=== PATIENT | female | born 1955 | race Caucasian/White ===

== ENCOUNTER → 2016-10-01 | Outpatient (CLI) | payer BC ==
[~2016-10-01] VITALS: Ht 154.9 cm; Wt 77.1 kg
[~2016-10-01] MED LIST: ADENOSINE 65 MG in GIVE UN-DILUTED 0 ML IV ONE; ADENOSINE 90 MG/30 ML INJ IV ONE; ASPI81TA27 PO; ENAL2.5T PO
== END | disposition home or self-care (01) ==
LOC: Rad HDHVI 09:24
PROVIDERS: ATTEND Internal Medicine Cardiovascular Disease
DX: I10 Essential (primary) hypertension (principal); E78.00 Pure hypercholesterolemia, unspecified; I70.0 Atherosclerosis of aorta; Z86.73 Personal history of transient ischemic attack (TIA), and cerebral infarction without residual deficits; Z82.49 Family history of ischemic heart disease and other diseases of the circulatory system
CPT/HCPCS: 71020; 78452; 93005; 96374; 96375; A9500; J0153

== ENCOUNTER → 2016-10-02 | Outpatient (CLI) | payer BC ==
[~2016-10-02] MED LIST changes: -ADENOSINE 65 MG in GIVE UN-DILUTED 0 ML IV ONE; -ADENOSINE 90 MG/30 ML INJ IV ONE
== END | disposition home or self-care (01) ==
LOC: Rad HDHVI 13:16
PROVIDERS: ATTEND Internal Medicine Cardiovascular Disease
DX: Z01.810 Encounter for preprocedural cardiovascular examination (principal); I65.22 Occlusion and stenosis of left carotid artery; I70.0 Atherosclerosis of aorta; I10 Essential (primary) hypertension; E78.5 Hyperlipidemia, unspecified
CPT/HCPCS: 93306

== ENCOUNTER → 2016-10-15 | Outpatient (CLI) | payer BC | END | disposition home or self-care (01) | LOC: Rad HDHVI 10:51 | PROVIDERS: ATTEND Internal Medicine Cardiovascular Disease | DX: Z01.818 Encounter for other preprocedural examination (principal) | CPT/HCPCS: 93880 ==

== ENCOUNTER → 2016-11-11 | Outpatient (CLI) | payer BC ==
[~2016-11-11] MED LIST changes: +GABA600T PO
[2016-11-11 09:00] VITALS: BP 126/65
[2016-11-11 09:40] VITALS: BP 133/70
[2016-11-11 12:42] LABS: Basophils # (auto) 0.1 uL; Basophils % (auto) 0.5 % (0.0-2.0); Eosinophils # (auto) 0.1 uL; Eosinophils % (auto) 1.2 % (0.0-7.0); Hematocrit 38.6 % (36.0-46.0); Hemoglobin 12.7 g/dL (12.2-16.2); Lymphocytes % (auto) 17.3 % (10.0-50.0); Mean Corpuscular Hemoglobin 29.4 pg (28.0-32.0); Mean Corpuscular Volume 89.2 fL (80.0-100.0); Mean Platelet Volume 9.9 fL (7.4-10.4); Monocytes # (auto) 0.3 uL; Monocytes % (auto) 2.9 % (0.0-12.0); Neutrophils # (auto) 8.8 uL; Neutrophils % (auto) 78.1 % (37.0-80.0); Platelet Count (auto) 337 10^3/uL (140-450); Red Cell Distribution Width 15.3 % (11.6-16.0); White Blood Cell 11.3 10^3/uL (4.4-10.8)
[2016-11-11 13:02] LABS: INR 0.93 (0.9-1.15); Partial Thromboplastin Time 24.8 sec (22.64-33.71)
[2016-11-11 13:10] LABS: BUN/Creatinine Ratio 23.7; Calcium 9.1 mg/dL (8.5-10.1); Magnesium 2.5 mg/dL (1.6-2.6); Potassium 3.8 mmol/L (3.5-5.1)
== END | disposition home or self-care (01) ==
LOC: Rad HDHVI 08:56
PROVIDERS: ATTEND Internal Medicine Cardiovascular Disease
DX: I10 Essential (primary) hypertension (principal); E83.40 Disorders of magnesium metabolism, unspecified; D64.9 Anemia, unspecified; R79.1 Abnormal coagulation profile
CPT/HCPCS: 36415; 71020; 80048; 83735; 85025; 85610; 85730; 93005; G0463

== ENCOUNTER 2016-11-13 08:23 | Inpatient (IN) | payer BC ==
[~2016-11-13] VITALS: Ht 154.9 cm; Wt 9.0 kg
[2016-11-13] MEDS ORDERED: SODIUM CHL 0.9% 50 ML ONE (08:41)
[2016-11-13] MEDS ORDERED: fentaNYL CITRATE 100 MCG/2 ML VL ONE (08:41)
[2016-11-13] MEDS ORDERED: ANGIOMAX 250 MG VIAL IV ONE (08:41)
[2016-11-13] MEDS ORDERED: MIDAZOLAM HCL 1MG/1ML-2 ML VIAL ONE (08:41)
[2016-11-13] MEDS ORDERED: TICAGRELOR 90 MG TAB ONE (09:28)
[2016-11-13] MEDS ORDERED: SODIUM CHLORIDE 0.9% 1,000 ML IV SCH (09:49)
[2016-11-13] MEDS ORDERED: MORPHINE SULF INJ 2 MG/ML SYRINGE 1ML IV PRN (10:00)
[2016-11-13] MEDS ORDERED: HYDROcodone-ACET 5/325MG TAB PO PRN (10:00)
[2016-11-13] MEDS ORDERED: ZOLPIDEM TARTRATE 5 MG TAB PO PRN (10:00)
[2016-11-13] MEDS ORDERED: LORazepam 0.5 MG TAB PO PRN (10:00)
[2016-11-13] MEDS ORDERED: NITROGLYCERIN 0.4 MG SL TAB SL PRN ×2 (10:00)
[2016-11-13] MEDS ORDERED: ACETAMINOPHEN 500 MG TAB PO PRN (10:00)
[2016-11-13] MEDS ORDERED: TICAGRELOR 90 MG TAB PO ONE (10:00)
[2016-11-13] MEDS ORDERED: ONDANSETRON HCL 4 MG/2 ML VIAL IV PRN (10:00)
[2016-11-13 10:30] VITALS: BP 150/69
[2016-11-13 11:09] VITALS: BP 150/69
[2016-11-13] MEDS: ENALAPRIL MALEATE 2.5 MG TAB PO SCH (11:57)
[2016-11-13 13:17] VITALS: BP 141/77
[2016-11-13] MEDS: GABAPENTIN 300 MG CAP PO SCH ×2 (13:55→22:12)
[2016-11-13] MEDS: ASPirin-EC 81 mg tab PO SCH (13:55)
[2016-11-13] MEDS ORDERED: OXY5T PO (15:17)
[2016-11-13 16:55] VITALS: BP 131/75
[2016-11-13] MEDS: OXYCODONE HCL 5MG TAB PO PRN ×2 (17:52→22:13)
[2016-11-13 22:00] VITALS: BP 127/67
[2016-11-13] MEDS: TICAGRELOR 90 MG TAB PO SCH (23:41)
[2016-11-14] MEDS: OXYCODONE HCL 5MG TAB PO PRN ×2 (03:07→08:09)
[2016-11-14 05:00] VITALS: BP 118/71
[2016-11-14] MEDS: GABAPENTIN 300 MG CAP PO SCH (05:36)
[2016-11-14 07:29] VITALS: BP 118/72
[2016-11-14 08:00] VITALS: BP 118/71
[2016-11-14 08:52] VITALS: BP 149/79
[2016-11-14] MEDS: ASPirin-EC 81 mg tab PO SCH (10:00)
[2016-11-14] MEDS: ENALAPRIL MALEATE 2.5 MG TAB PO SCH (10:00)
[2016-11-14] MEDS: TICAGRELOR 90 MG TAB PO SCH (10:00)
== END 2016-11-14 10:30 | disposition home or self-care (01) | DRG 247 ==
LOC: CATH 08:23 → TELE-WESTW 08:24
PROVIDERS: ADMIT Internal Medicine Cardiovascular Disease; ATTEND Internal Medicine Cardiovascular Disease
PROC: 0270346 Dilation of Coronary Artery, One Artery, Bifurcation, with Drug-eluting Intraluminal Device, Percutaneous Approach (ICD-10-PCS; principal; 2016-11-13)
PROC: 027034Z Dilation of Coronary Artery, One Artery with Drug-eluting Intraluminal Device, Percutaneous Approach (ICD-10-PCS; 2016-11-13)
PROC: 4A023N7 Measurement of Cardiac Sampling and Pressure, Left Heart, Percutaneous Approach (ICD-10-PCS; 2016-11-13)
PROC: B2111ZZ Fluoroscopy of Multiple Coronary Arteries using Low Osmolar Contrast (ICD-10-PCS; 2016-11-13)
PROC: B2151ZZ Fluoroscopy of Left Heart using Low Osmolar Contrast (ICD-10-PCS; 2016-11-13)
PROC: B41F1ZZ Fluoroscopy of Right Lower Extremity Arteries using Low Osmolar Contrast (ICD-10-PCS; 2016-11-13)
DX: I25.10 Atherosclerotic heart disease of native coronary artery without angina pectoris (principal); E11.9 Type 2 diabetes mellitus without complications; I10 Essential (primary) hypertension; E78.5 Hyperlipidemia, unspecified; M54.16 Radiculopathy, lumbar region; E66.01 Morbid (severe) obesity due to excess calories
CPT/HCPCS: 92928; 92929; 93458; 99152; C1874; J2250

== ENCOUNTER 2016-12-16 15:45 | Inpatient (IN) | payer BC ==
[~2016-12-16] VITALS: Ht 154.9 cm; Wt 78.6 kg
[~2016-12-16 15:45] MED LIST changes: +OXY5T PO
[2016-12-16 16:34] LABS: Basophils # (auto) 0 uL; Basophils % (auto) 0.4 % (0.0-2.0); Eosinophils # (auto) 0.2 uL; Eosinophils % (auto) 2.2 % (0.0-7.0); Hematocrit 35.3 % (36.0-46.0); Hemoglobin 11.9 g/dL (12.2-16.2); Lymphocytes # (auto) 1.6 uL; Lymphocytes % (auto) 15.9 % (10.0-50.0); Mean Corpuscular Hemoglobin 29.4 pg (28.0-32.0); Mean Corpuscular Hgb Conc. 33.9 g/dL (32.0-36.0); Mean Corpuscular Volume 86.7 fL (80.0-100.0); Mean Platelet Volume 9.4 fL (7.4-10.4); Monocytes # (auto) 0.8 uL; Monocytes % (auto) 7.9 % (0.0-12.0); Neutrophils # (auto) 7.2 uL; Neutrophils % (auto) 73.6 % (37.0-80.0); Platelet Count (auto) 338 10^3/uL (140-450); Red Cell Distribution Width 14.9 % (11.6-16.0); White Blood Cell 9.8 10^3/uL (4.4-10.8)
[2016-12-16 16:48] LABS: Albumin 3.4 g/dL (3.4-5.0); BUN/Creatinine Ratio 6.3; Calcium 8.6 mg/dL (8.5-10.1); Potassium 3.8 mmol/L (3.5-5.1)
[2016-12-16 16:51] LABS: Bilirubin, Total 0.9 mg/dL (0.2-1.0)
[2016-12-16 18:47] LABS: Urine Bilirubin Negative (Negative); Urine Blood Negative /uL (Negative); Urine Color Yellow (Yellow); Urine Glucose Normal (Normal); Urine Ketone Negative (Negative); Urine Nitrite Negative (Negative); Urine RBC <1 /hpf (0 - 4); Urine Squamous Epithelial Cell FEW /hpf (<5); Urine Urobilinogen Normal (Negative)
[2016-12-16] MEDS ORDERED: MORPHINE SULFATE 4 MG/ML SYRG IM ONE (19:45)
[2016-12-16] MEDS ORDERED: MORPHINE SULFATE 4 MG/ML SYRG IV ONE (20:15)
[2016-12-16] MEDS ORDERED: SODIUM CHLORIDE 0.9% 1,000 ML IV ONE (20:30)
[2016-12-16] MEDS ORDERED: ONDANSETRON HCL 4 MG/2 ML VIAL IV ONE (20:30)
[2016-12-16] MEDS ORDERED: OXY5T PO (22:47)
[2016-12-16] MEDS ORDERED: GABA-494 PO (22:47)
[2016-12-16] MEDS ORDERED: ENA10T PO (22:47)
[2016-12-16] MEDS ORDERED: TICA90TA PO (22:47)
[2016-12-16] MEDS ORDERED: MAGN400T5 PO (22:47)
[2016-12-16] MEDS ORDERED: DOCUSATE SOD 100 MG CAP PO PRN (23:15)
[2016-12-16] MEDS: SODIUM CHLORIDE 0.9% 1,000 ML IV SCH (23:32)
[2016-12-17] VITALS (7 sets, daily range): BP systolic 127–159; BP diastolic 58–88
[2016-12-17] MEDS: oxyCODONE ER 10 MG TAB PO SCH ×7 (02:30→21:36)
[2016-12-17] MEDS: SODIUM CHLORIDE 0.9% 1,000 ML IV SCH (04:40)
[2016-12-17] MEDS: GABAPENTIN 100 MG CAP PO SCH ×3 (05:21→21:36)
[2016-12-17] MEDS: ENALAPRIL MALEATE 10 MG TAB PO SCH (08:57)
[2016-12-17] MEDS: FAMOTIDINE (10MG/ML) 2ML VL IV SCH ×2 (08:58→21:35)
[2016-12-17] MEDS: MAGNESIUM OXIDE 400 MG TAB PO SCH (08:58)
[2016-12-17] MEDS: TICAGRELOR 90 MG TAB PO SCH ×2 (09:07→21:36)
[2016-12-17] MEDS ORDERED: LEVOFLOXACIN 500MG 100 ML IV ONE (09:45)
[2016-12-17] MEDS: LEVOFLOXACIN 500MG 100 ML IV SCH (10:00)
[2016-12-17] MEDS: metroNIDAZOLE 500MG/100ML 100 ML IV SCH ×2 (18:03→23:17)
[2016-12-18] MEDS: oxyCODONE ER 10 MG TAB PO SCH ×6 (02:04→21:37)
[2016-12-18] MEDS: SODIUM CHLORIDE 0.9% 1,000 ML IV SCH ×2 (02:04→16:19)
[2016-12-18 05:00] VITALS: BP 159/68
[2016-12-18] MEDS: metroNIDAZOLE 500MG/100ML 100 ML IV SCH ×3 (05:40→18:39)
[2016-12-18] MEDS: GABAPENTIN 100 MG CAP PO SCH ×3 (05:41→21:36)
[2016-12-18 08:00] VITALS: BP 115/82
[2016-12-18 09:00] VITALS: BP_SYST 115; BP_SYST 171; BP_DIAS 69; BP_DIAS 82
[2016-12-18] MEDS: FAMOTIDINE (10MG/ML) 2ML VL IV SCH ×2 (09:23→21:37)
[2016-12-18] MEDS: MAGNESIUM OXIDE 400 MG TAB PO SCH (09:23)
[2016-12-18] MEDS: LEVOFLOXACIN 500MG 100 ML IV SCH (09:23)
[2016-12-18] MEDS: ENALAPRIL MALEATE 10 MG TAB PO SCH (09:25)
[2016-12-18] MEDS ORDERED: LEVOFLOXACIN 500MG 100 ML IV SCH (10:00)
[2016-12-18] MEDS: TICAGRELOR 90 MG TAB PO SCH ×2 (12:22→21:36)
[2016-12-18] MEDS: METOCLOPRAMIDE HCL 5MG/ml INJ 2ml VIAL IV PRN (12:23)
[2016-12-18 13:00] VITALS: BP 171/69
[2016-12-18 17:00] VITALS: BP 165/67
[2016-12-18 22:59] VITALS: BP 150/71
[2016-12-19] MEDS: metroNIDAZOLE 500MG/100ML 100 ML IV SCH ×4 (00:32→18:29)
[2016-12-19] MEDS: oxyCODONE ER 10 MG TAB PO SCH ×6 (02:04→21:40)
[2016-12-19 05:08] VITALS: BP 150/73
[2016-12-19] MEDS: GABAPENTIN 100 MG CAP PO SCH ×3 (05:37→21:39)
[2016-12-19] MEDS: SODIUM CHLORIDE 0.9% 1,000 ML IV SCH ×2 (05:41→18:30)
[2016-12-19 08:00] VITALS: BP 150/80
[2016-12-19] MEDS: MAGNESIUM OXIDE 400 MG TAB PO SCH (09:21)
[2016-12-19] MEDS: FAMOTIDINE (10MG/ML) 2ML VL IV SCH ×2 (09:22→21:39)
[2016-12-19] MEDS: ENALAPRIL MALEATE 10 MG TAB PO SCH (09:23)
[2016-12-19] MEDS: LEVOFLOXACIN 500MG 100 ML IV SCH (09:23)
[2016-12-19] MEDS: METOCLOPRAMIDE HCL 5MG/ml INJ 2ml VIAL IV PRN ×2 (09:23→18:26)
[2016-12-19] MEDS: TICAGRELOR 90 MG TAB PO SCH ×2 (11:12→22:00)
[2016-12-19 13:00] VITALS: BP 184/91
[2016-12-19] MEDS ORDERED: ENALAPRIL MALEATE 10 MG TAB PO ONE (15:00)
[2016-12-19 17:00] VITALS: BP 168/86
[2016-12-19 21:30] VITALS: BP 180/91
[2016-12-19] MEDS: cloNIDine HCL 0.1 MG TAB PO PRN (22:26)
[2016-12-20] MEDS: metroNIDAZOLE 500MG/100ML 100 ML IV SCH ×5 (00:22→23:49)
[2016-12-20] MEDS: oxyCODONE ER 10 MG TAB PO SCH ×6 (02:42→21:33)
[2016-12-20 05:00] VITALS: BP 185/85
[2016-12-20] MEDS ORDERED: cloNIDine HCL 0.1 MG TAB ONE (05:11)
[2016-12-20] MEDS: GABAPENTIN 100 MG CAP PO SCH ×3 (05:43→21:27)
[2016-12-20] MEDS: cloNIDine HCL 0.1 MG TAB PO PRN (05:45)
[2016-12-20] MEDS: SODIUM CHLORIDE 0.9% 1,000 ML IV SCH ×2 (07:37→20:35)
[2016-12-20 08:49] VITALS: BP 107/72
[2016-12-20] MEDS: ENALAPRIL MALEATE 10 MG TAB PO SCH (10:00)
[2016-12-20] MEDS: TICAGRELOR 90 MG TAB PO SCH ×3 (10:00→21:27)
[2016-12-20] MEDS: LEVOFLOXACIN 500MG 100 ML IV SCH (10:06)
[2016-12-20] MEDS: MAGNESIUM OXIDE 400 MG TAB PO SCH (10:07)
[2016-12-20] MEDS: FAMOTIDINE (10MG/ML) 2ML VL IV SCH ×2 (10:07→21:27)
[2016-12-20] MEDS: METOCLOPRAMIDE HCL 5MG/ml INJ 2ml VIAL IV PRN (12:12)
[2016-12-20] MEDS ORDERED: METOCLOPRAMIDE HCL 10 MG TAB PO PRN (12:15)
[2016-12-20] MEDS ORDERED: METOCLOPRAMIDE HCL 5MG/ml INJ 2ml VIAL ONE (12:16)
[2016-12-20 12:22] VITALS: BP 153/72
[2016-12-20 15:05] LABS: Basophils # (auto) 0 uL; Basophils % (auto) 0.6 % (0.0-2.0); Eosinophils # (auto) 0.2 uL; Eosinophils % (auto) 2.9 % (0.0-7.0); Hematocrit 33.9 % (36.0-46.0); Hemoglobin 11.7 g/dL (12.2-16.2); Lymphocytes # (auto) 1.5 uL; Lymphocytes % (auto) 19.1 % (10.0-50.0); Mean Corpuscular Hemoglobin 29.6 pg (28.0-32.0); Mean Corpuscular Hgb Conc. 34.5 g/dL (32.0-36.0); Mean Platelet Volume 8.2 fL (7.4-10.4); Monocytes # (auto) 0.6 uL; Monocytes % (auto) 8.5 % (0.0-12.0); Neutrophils # (auto) 5.3 uL; Neutrophils % (auto) 68.9 % (37.0-80.0); Platelet Count (auto) 387 10^3/uL (140-450); Red Cell Distribution Width 14.4 % (11.6-16.0); White Blood Cell 7.7 10^3/uL (4.4-10.8)
[2016-12-20 15:13] LABS: BUN/Creatinine Ratio 3.2; Calcium 8.5 mg/dL (8.5-10.1); Potassium 3.6 mmol/L (3.5-5.1)
[2016-12-20 17:04] VITALS: BP 144/66
[2016-12-20] MEDS: PANCREATIC ENZYMES 4200 UNIT CAP PO SCH ×2 (18:00→18:11)
[2016-12-20 22:00] VITALS: BP 157/73
[2016-12-21] MEDS: oxyCODONE ER 10 MG TAB PO SCH ×6 (02:30→21:38)
[2016-12-21 05:00] VITALS: BP 155/94
[2016-12-21] MEDS: metroNIDAZOLE 500MG/100ML 100 ML IV SCH (05:26)
[2016-12-21] MEDS: GABAPENTIN 100 MG CAP PO SCH ×3 (05:26→21:38)
[2016-12-21] MEDS: PANCREATIC ENZYMES 4200 UNIT CAP PO SCH ×3 (08:23→17:56)
[2016-12-21 09:00] VITALS: BP 164/84
[2016-12-21] MEDS ORDERED: FUROSEMIDE 40 MG/4 ML VIAL IV ONE (10:15)
[2016-12-21] MEDS: MAGNESIUM OXIDE 400 MG TAB PO SCH (10:52)
[2016-12-21] MEDS: ENALAPRIL MALEATE 10 MG TAB PO SCH (10:53)
[2016-12-21] MEDS: FAMOTIDINE (10MG/ML) 2ML VL IV SCH ×2 (10:59→21:38)
[2016-12-21 13:00] VITALS: BP 152/92
[2016-12-21] MEDS ORDERED: CLOPIDOGREL BISULFATE 75 MG TAB PO ONE (13:00)
[2016-12-21] MEDS: PROMETHAZINE HCL 25 MG/ML 1ML IM SCH ×2 (14:49→21:37)
[2016-12-21 17:00] VITALS: BP 131/97
[2016-12-21 22:00] VITALS: BP 175/102
[2016-12-21] MEDS: cloNIDine HCL 0.1 MG TAB PO PRN (22:47)
[2016-12-22] MEDS: oxyCODONE ER 10 MG TAB PO SCH ×6 (02:00→22:01)
[2016-12-22 05:00] VITALS: BP 160/105
[2016-12-22] MEDS: PROMETHAZINE HCL 25 MG/ML 1ML IM SCH ×2 (05:42→13:51)
[2016-12-22] MEDS: GABAPENTIN 100 MG CAP PO SCH ×3 (05:43→22:01)
[2016-12-22] MEDS: PANCREATIC ENZYMES 4200 UNIT CAP PO SCH ×4 (08:00→18:03)
[2016-12-22] MEDS ORDERED: EZ-GAS II GRANULES (RADIOLOGY USE) PO ONE (08:32)
[2016-12-22] MEDS ORDERED: BARIUM SULFATE 98% 340 GM PWDR ONE (08:33)
[2016-12-22] MEDS ORDERED: EZ PAQUE SUSP 12OZ BTL ONE (08:33)
[2016-12-22 08:49] VITALS: BP 149/98
[2016-12-22] MEDS: FAMOTIDINE (10MG/ML) 2ML VL IV SCH ×2 (10:26→22:01)
[2016-12-22] MEDS: MAGNESIUM OXIDE 400 MG TAB PO SCH (10:28)
[2016-12-22] MEDS: CLOPIDOGREL BISULFATE 75 MG TAB PO SCH (10:28)
[2016-12-22] MEDS: ENALAPRIL MALEATE 10 MG TAB PO SCH (10:28)
[2016-12-22] MEDS: cloNIDine HCL 0.1 MG TAB PO PRN (12:18)
[2016-12-22 12:37] VITALS: BP 170/93
[2016-12-22 16:30] VITALS: BP 131/74
[2016-12-22 21:45] VITALS: BP 147/65
[2016-12-23] MEDS: oxyCODONE ER 10 MG TAB PO SCH ×6 (02:20→21:59)
[2016-12-23 05:36] VITALS: BP 121/69
[2016-12-23 05:46] LABS: Albumin 2.7 g/dL (3.4-5.0); Calcium 7.5 mg/dL (8.5-10.1)
[2016-12-23 05:49] LABS: BUN/Creatinine Ratio 7.6
[2016-12-23 05:51] LABS: Bilirubin, Total 0.7 mg/dL (0.2-1.0); Total Protein 5.2 g/dL (6.4-8.2)
[2016-12-23] MEDS: GABAPENTIN 100 MG CAP PO SCH ×3 (06:12→21:59)
[2016-12-23] MEDS ORDERED: GASTROGRAFIN 30 ML SOL ONE (06:46)
[2016-12-23 07:05] LABS: B-Type Natriuretic Peptide 90.35 pg/mL (0-100)
[2016-12-23 07:37] VITALS: BP 132/61
[2016-12-23 07:51] LABS: Temperature: 22.9 C (20.0-25.0)
[2016-12-23] MEDS: POTASSIUM CHL 20MEQ/100ML 100 ML IV SCH ×3 (08:43→16:39)
[2016-12-23] MEDS: PANCREATIC ENZYMES 4200 UNIT CAP PO SCH ×3 (08:43→18:24)
[2016-12-23] MEDS: SODIUM CHLORIDE 0.9% 1,000 ML IV SCH (08:44)
[2016-12-23] MEDS: CLOPIDOGREL BISULFATE 75 MG TAB PO SCH (10:37)
[2016-12-23] MEDS: MAGNESIUM OXIDE 400 MG TAB PO SCH (10:38)
[2016-12-23] MEDS: ENALAPRIL MALEATE 10 MG TAB PO SCH (10:38)
[2016-12-23] MEDS: FAMOTIDINE (10MG/ML) 2ML VL IV SCH ×2 (10:39→21:59)
[2016-12-23 12:23] VITALS: BP 140/60
[2016-12-23 16:28] VITALS: BP 128/77
[2016-12-23] MEDS: metroNIDAZOLE 500 MG TAB PO SCH (21:59)
[2016-12-23 22:00] VITALS: BP 148/71
[2016-12-24] MEDS: oxyCODONE ER 10 MG TAB PO SCH ×6 (02:01→22:17)
[2016-12-24] MEDS: SODIUM CHLORIDE 0.9% 1,000 ML IV SCH (05:00)
[2016-12-24] MEDS: metroNIDAZOLE 500 MG TAB PO SCH ×4 (05:37→22:16)
[2016-12-24] MEDS: GABAPENTIN 100 MG CAP PO SCH ×3 (05:37→22:16)
[2016-12-24 05:45] VITALS: BP 138/69
[2016-12-24 08:00] VITALS: BP 131/82
[2016-12-24] MEDS: PANCREATIC ENZYMES 4200 UNIT CAP PO SCH ×3 (08:56→18:40)
[2016-12-24] MEDS: FAMOTIDINE (10MG/ML) 2ML VL IV SCH ×2 (10:11→22:16)
[2016-12-24] MEDS: MAGNESIUM OXIDE 400 MG TAB PO SCH (10:12)
[2016-12-24] MEDS: ENALAPRIL MALEATE 10 MG TAB PO SCH (10:12)
[2016-12-24] MEDS: CLOPIDOGREL BISULFATE 75 MG TAB PO SCH (10:12)
[2016-12-24 12:00] VITALS: BP 154/76
[2016-12-24 17:00] VITALS: BP 156/70
[2016-12-24 22:00] VITALS: BP 134/61
[2016-12-25] MEDS: oxyCODONE ER 10 MG TAB PO SCH ×4 (01:48→13:56)
[2016-12-25 05:00] VITALS: BP 146/87
[2016-12-25] MEDS: metroNIDAZOLE 500 MG TAB PO SCH ×2 (05:56→12:40)
[2016-12-25] MEDS: GABAPENTIN 100 MG CAP PO SCH ×2 (05:56→13:56)
[2016-12-25 08:24] VITALS: BP 154/78
[2016-12-25] MEDS: PANCREATIC ENZYMES 4200 UNIT CAP PO SCH ×2 (09:03→12:40)
[2016-12-25] MEDS: MAGNESIUM OXIDE 400 MG TAB PO SCH (09:03)
[2016-12-25] MEDS: CLOPIDOGREL BISULFATE 75 MG TAB PO SCH (09:03)
[2016-12-25] MEDS: FAMOTIDINE (10MG/ML) 2ML VL IV SCH (09:03)
[2016-12-25] MEDS: ENALAPRIL MALEATE 10 MG TAB PO SCH (09:04)
[2016-12-25 12:01] VITALS: BP 105/63
[2016-12-25] MEDS ORDERED: HYDROmorphone HCL 2 MG/ML VL IM ONE (13:30)
[2016-12-25] MEDS ORDERED: methylPREDNISolone SOD SUCC 40 MG/ML VL IV ONE (13:30)
[2016-12-25 17:13] VITALS: BP 157/69
== END 2016-12-25 17:55 | disposition home or self-care (01) | DRG 372 ==
LOC: ER 15:50 → OVERFLOW 15:51 → EAST 12-17 04:30
PROVIDERS: ADMIT Internal Medicine Cardiovascular Disease; ATTEND Internal Medicine Cardiovascular Disease
DX: A04.7 Enterocolitis due to Clostridium difficile (principal); E87.1 Hypo-osmolality and hyponatremia; I10 Essential (primary) hypertension; F41.9 Anxiety disorder, unspecified; M19.90 Unspecified osteoarthritis, unspecified site; M54.9 Dorsalgia, unspecified; D64.9 Anemia, unspecified; G89.4 Chronic pain syndrome; E86.0 Dehydration; I25.10 Atherosclerotic heart disease of native coronary artery without angina pectoris; M79.7 Fibromyalgia; Z86.73 Personal history of transient ischemic attack (TIA), and cerebral infarction without residual deficits; Z88.8 Allergy status to other drugs, medicaments and biological substances; Z79.899 Other long term (current) drug therapy; Z79.82 Long term (current) use of aspirin; Z95.5 Presence of coronary angioplasty implant and graft
CPT/HCPCS: 36415; 71010; 74000; 74176; 74245; 80048; 80053; 81001; 82150; 83690; 83880; 84132; 85025; 87493; 93005; 96361; 96374; 96375; 97001; 97116; 97530; J1956; J2405; J3480; J3490

== ENCOUNTER → 2017-01-14 | Outpatient (CLI) | payer BC ==
[~2017-01-14] MED LIST changes: +ENA10T PO; +GABA-494 PO; +MAGN400T5 PO; +TICA90TA PO
== END | disposition home or self-care (01) ==
LOC: Rad HDHVI 10:24
PROVIDERS: ATTEND Internal Medicine Cardiovascular Disease
DX: I10 Essential (primary) hypertension (principal); E11.9 Type 2 diabetes mellitus without complications
CPT/HCPCS: 93306

== ENCOUNTER → 2017-10-06 | Outpatient (CLI) | payer BC ==
[~2017-10-06] MED LIST changes: +ASP81EC PO; +ENAL20TA70 PO; +GABA-339 PO; -GABA-494 PO; +GABA100C9 PO; +OXY10CRT PO; +PRED1PAK9 PO
== END | disposition home or self-care (01) ==
LOC: Rad HDHVI 15:28
PROVIDERS: ATTEND Internal Medicine Cardiovascular Disease
DX: I63.9 Cerebral infarction, unspecified (principal)
CPT/HCPCS: 93880

== ENCOUNTER → 2017-10-15 | Outpatient (CLI) | payer BC ==
[~2017-10-15] MED LIST changes: +ADENOSINE 59 MG in GIVE UN-DILUTED 0 ML IV ONE; +ADENOSINE 90 MG/30 ML INJ IV ONE
== END | disposition home or self-care (01) ==
LOC: Rad HDHVI 08:27
PROVIDERS: ATTEND Internal Medicine Cardiovascular Disease
DX: I25.10 Atherosclerotic heart disease of native coronary artery without angina pectoris (principal); I63.9 Cerebral infarction, unspecified; G89.29 Other chronic pain
CPT/HCPCS: 78452; 93005; 93306; 96374; 96375; A9500; J0153

== ENCOUNTER → 2017-11-16 | Outpatient (CLI) | payer BC ==
[~2017-11-16] MED LIST changes: -ADENOSINE 59 MG in GIVE UN-DILUTED 0 ML IV ONE; -ADENOSINE 90 MG/30 ML INJ IV ONE
[2017-11-16 09:10] VITALS: BP 127/67
[2017-11-16 09:30] VITALS: BP 115/65
[2017-11-16 12:10] LABS: Basophils # (auto) 0.1 uL; Basophils % (auto) 0.4 % (0.0-2.0); Eosinophils # (auto) 0 uL; Eosinophils % (auto) 0.2 % (0.0-7.0); Hematocrit 40.6 % (36.0-46.0); Hemoglobin 13.5 g/dL (12.2-16.2); Lymphocytes # (auto) 1.3 uL; Mean Corpuscular Hemoglobin 29.9 pg (28.0-32.0); Mean Corpuscular Hgb Conc. 33.3 g/dL (32.0-36.0); Mean Corpuscular Volume 89.9 fL (80.0-100.0); Monocytes # (auto) 0.4 uL; Monocytes % (auto) 2.8 % (0.0-12.0); Neutrophils % (auto) 87.6 % (37.0-80.0); Platelet Count (auto) 269 10^3/uL (140-450); Red Blood Cells 4.51 10^6/uL (4.0-5.20); Red Cell Distribution Width 14.1 % (11.8-14.3); White Blood Cell 14.8 10^3/uL (4.4-10.8)
[2017-11-16 12:21] LABS: INR 0.91 (0.9-1.15); Prothrombin Time 9.9 sec (9.37-12.3)
[2017-11-16 12:24] LABS: BUN/Creatinine Ratio 17.7; Calcium 8.3 mg/dL (8.5-10.1)
== END | disposition home or self-care (01) ==
LOC: Rad HDHVI 08:53
PROVIDERS: ATTEND Internal Medicine Cardiovascular Disease
DX: Z01.818 Encounter for other preprocedural examination (principal); I70.0 Atherosclerosis of aorta; I10 Essential (primary) hypertension; E11.9 Type 2 diabetes mellitus without complications; E78.00 Pure hypercholesterolemia, unspecified; E78.5 Hyperlipidemia, unspecified; Z79.899 Other long term (current) drug therapy; Z79.82 Long term (current) use of aspirin
CPT/HCPCS: 36415; 71046; 80048; 85025; 85610; 85730; 93005; G0463

== ENCOUNTER 2017-11-19 07:09 | Inpatient (IN) | payer BC ==
[~2017-11-19] VITALS: Ht 154.9 cm; Wt 76.2 kg
[~2017-11-19 07:09] MED LIST changes: -ASPI81TA27 PO; -ENA10T PO; -ENAL2.5T PO; -GABA100C9 PO; -GABA600T PO; -OXY5T PO; -TICA90TA PO
[2017-11-19] MEDS ORDERED: IOHEXOL 350 MG/ML 100ML IJ ONE (08:42)
[2017-11-19] MEDS ORDERED: LIDOCAINE HCL 2 %PF INJ 10ML AMP IJ ONE (08:43)
[2017-11-19] MEDS ORDERED: ANGIOMAX 250 MG VIAL IV ONE (08:46)
[2017-11-19] MEDS ORDERED: SODIUM CHL 0.9% 50 ML ONE (08:47)
[2017-11-19] MEDS ORDERED: MIDAZOLAM HCL 1MG/1ML-2 ML VIAL ONE (08:47)
[2017-11-19] MEDS ORDERED: fentaNYL CITRATE 100 MCG/2 ML VL ONE (08:47)
[2017-11-19] MEDS ORDERED: CLOPIDOGREL 300 MG TAB ONE (09:21)
[2017-11-19] MEDS ORDERED: OXYBUTYNIN CHL 5 MG TAB PO PRN (10:00)
[2017-11-19] MEDS: ASPirin-EC 81 mg tab PO SCH (10:00)
[2017-11-19] MEDS ORDERED: SODIUM CHLORIDE 0.9% 1,000 ML IV SCH (10:04)
[2017-11-19] MEDS ORDERED: MORPHINE SULFATE 8mg/ml INJ SDV IV PRN (10:15)
[2017-11-19] MEDS ORDERED: NITROGLYCERIN 0.4 MG SL TAB SL PRN ×2 (10:15)
[2017-11-19] MEDS ORDERED: ACETAMINOPHEN 500 MG TAB PO PRN (10:15)
[2017-11-19] MEDS ORDERED: MILK OF MAGNESIA 30ML SUSP PO ONE (10:15)
[2017-11-19] MEDS ORDERED: ONDANSETRON HCL 4 MG/2 ML VIAL IV PRN (10:15)
[2017-11-19] MEDS ORDERED: LORazepam 0.5 MG TAB PO PRN (10:15)
[2017-11-19] MEDS ORDERED: ZOLPIDEM TARTRATE 5 MG TAB PO PRN (10:15)
[2017-11-19] MEDS: ENALAPRIL MALEATE 10 MG TAB PO SCH (10:23)
[2017-11-19] MEDS: predniSONE 5 MG TAB PO SCH (10:29)
[2017-11-19 12:30] VITALS: BP 132/74
[2017-11-19 13:21] VITALS: BP 132/74
[2017-11-19] MEDS: GABAPENTIN 300 MG CAP PO SCH ×3 (14:03→21:57)
[2017-11-19] MEDS: oxyCODONE ER 10 MG TAB PO SCH ×3 (14:06→21:57)
[2017-11-19] MEDS: MORPHINE SULFATE 8mg/ml INJ SDV IV PRN (15:36)
[2017-11-19 16:42] VITALS: BP 107/68
[2017-11-19 22:00] VITALS: BP 95/60
[2017-11-20] MEDS: MORPHINE SULFATE 8mg/ml INJ SDV IV PRN (00:54)
[2017-11-20] MEDS: oxyCODONE ER 10 MG TAB PO SCH ×3 (01:42→09:47)
[2017-11-20] MEDS: GABAPENTIN 300 MG CAP PO SCH ×3 (01:42→09:47)
[2017-11-20 05:00] VITALS: BP 100/65
[2017-11-20 09:10] VITALS: BP 111/65
[2017-11-20] MEDS: predniSONE 5 MG TAB PO SCH (09:47)
[2017-11-20] MEDS: ASPirin-EC 81 mg tab PO SCH (09:47)
[2017-11-20] MEDS: ENALAPRIL MALEATE 10 MG TAB PO SCH (09:48)
[2017-11-20] MEDS ORDERED: CLOPIDOGREL BISULFATE 75 MG TAB PO SCH (10:00)
[2017-11-20] MEDS ORDERED: MAGNESIUM OXIDE 400 MG TAB PO SCH (10:00)
== END 2017-11-20 10:05 | disposition home or self-care (01) | DRG 247 ==
LOC: CATH 07:09 → TELE-WESTW 07:10
PROVIDERS: ADMIT Internal Medicine Cardiovascular Disease; ATTEND Internal Medicine Cardiovascular Disease
PROC: 027034Z Dilation of Coronary Artery, One Artery with Drug-eluting Intraluminal Device, Percutaneous Approach (ICD-10-PCS; principal; 2017-11-19)
PROC: 4A023N7 Measurement of Cardiac Sampling and Pressure, Left Heart, Percutaneous Approach (ICD-10-PCS; 2017-11-19)
PROC: B2111ZZ Fluoroscopy of Multiple Coronary Arteries using Low Osmolar Contrast (ICD-10-PCS; 2017-11-19)
PROC: B2151ZZ Fluoroscopy of Left Heart using Low Osmolar Contrast (ICD-10-PCS; 2017-11-19)
DX: I25.119 Atherosclerotic heart disease of native coronary artery with unspecified angina pectoris (principal); E78.5 Hyperlipidemia, unspecified; I10 Essential (primary) hypertension; M06.9 Rheumatoid arthritis, unspecified; Z79.82 Long term (current) use of aspirin; Z86.73 Personal history of transient ischemic attack (TIA), and cerebral infarction without residual deficits; Z95.5 Presence of coronary angioplasty implant and graft
CPT/HCPCS: 92928; 93458; J2250; J2270

== ENCOUNTER 2018-01-05 10:58 | Observation (INO) | payer BC ==
[~2018-01-05] VITALS: Ht 154.9 cm; Wt 72.6 kg
[2018-01-05 12:09] LABS: Basophils # (auto) 0.1 uL; Basophils % (auto) 0.6 % (0.0-2.0); Eosinophils # (auto) 0 uL; Eosinophils % (auto) 0.1 % (0.0-7.0); Hematocrit 43.8 % (36.0-46.0); Hemoglobin 14.8 g/dL (12.2-16.2); Mean Corpuscular Hemoglobin 30.1 pg (28.0-32.0); Mean Corpuscular Hgb Conc. 33.8 g/dL (32.0-36.0); Mean Corpuscular Volume 89.1 fL (80.0-100.0); Monocytes # (auto) 0.6 uL; Monocytes % (auto) 5.3 % (0.0-12.0); Nucleated Red Blood Cells % 0.1 %; Platelet Count (auto) 297 10^3/uL (140-450); Red Blood Cells 4.92 10^6/uL (4.0-5.20); Red Cell Distribution Width 14.3 % (11.8-14.3); White Blood Cell 11.7 10^3/uL (4.4-10.8)
[2018-01-05 12:35] LABS: Alanine Aminotransferase 39 U/L (13-56); Albumin 3.7 g/dL (3.4-5.0); Alkaline Phosphatase 57 U/L (45-117); Anion Gap 12 (5-15); Aspartate Aminotransferase 12 U/L (15-37); BUN/Creatinine Ratio 12.1; Bilirubin, Total 0.6 mg/dL (0.2-1.0); Blood Urea Nitrogen 11 mg/dL (7-18); Calcium 8.8 mg/dL (8.5-10.1); Carbon Dioxide 23 mmol/L (21-32); Chloride 100 mmol/L (98-107); GFR African American 81 mL/min; GFR Non-African American 67 mL/min; Glucose 117 mg/dL (74-106); Magnesium 2.2 mg/dL (1.6-2.6); Sodium 135 mmol/L (136-145); Total Protein 7.1 g/dL (6.4-8.2)
[2018-01-05] MEDS ORDERED: ONDANSETRON ODT 4 MG TAB PO ONE (13:00)
[2018-01-05 13:35] LABS: INR 0.91 (0.9-1.15); Prothrombin Time 9.8 sec (9.27-12.13)
[2018-01-05 22:53] LABS: Urine Amorphous Crystal FEW /hpf (None Seen); Urine Bacteria FEW /hpf (None Seen); Urine Blood Negative /uL (Negative); Urine Mucus FEW (None Seen); Urine Specific Gravity 1.014 (1.001-1.035); Urine WBC 1 /hpf (0 - 5)
[2018-01-05] MEDS ORDERED: HYDROcodone-ACET 10/325MG TAB PO ONE (23:15)
[2018-01-05] MEDS ORDERED: LORazepam 2MG/ML-1ML VIAL IV ONE (23:15)
[2018-01-06 00:21] VITALS: BP 110/58
== END 2018-01-06 01:50 | disposition home or self-care (01) | DRG 303 ==
LOC: ER 11:12 → OVERFLOW 11:13 → ER 01-06 01:50
PROVIDERS: ADMIT Family Medicine; ATTEND Family Medicine
DX: I25.110 Atherosclerotic heart disease of native coronary artery with unstable angina pectoris (principal); F41.9 Anxiety disorder, unspecified; I10 Essential (primary) hypertension; M19.90 Unspecified osteoarthritis, unspecified site; Z82.49 Family history of ischemic heart disease and other diseases of the circulatory system; Z83.3 Family history of diabetes mellitus; Z95.5 Presence of coronary angioplasty implant and graft; Z79.899 Other long term (current) drug therapy
CPT/HCPCS: 36415; 71046; 80053; 81001; 83735; 83880; 84443; 84484; 85025; 85610; 85730; 93005; 96374; 99285; G0378; J2060; J7030; Q0162

== ENCOUNTER → 2018-01-20 | Outpatient (CLI) | payer MEDICARE, BC | END | disposition home or self-care (01) | LOC: Rad HDHVI 14:03 | PROVIDERS: ATTEND Internal Medicine Cardiovascular Disease | DX: I08.8 Other rheumatic multiple valve diseases (principal); I10 Essential (primary) hypertension; I20.9 Angina pectoris, unspecified | CPT/HCPCS: 93306 ==

== ENCOUNTER → 2019-10-11 | Outpatient (CLI) | payer BC, MEDICARE ==
[~2019-10-11] VITALS: Ht 154.9 cm; Wt 61.2 kg
[~2019-10-11] MED LIST changes: +ADENOSINE 51 MG in GIVE UN-DILUTED 0 ML IV ONE; +ADENOSINE 90 MG/30 ML INJ IV ONE; +ENAL20TA PO; -ENAL20TA70 PO; -MAGN400T5 PO; +PERCOT PO
== END | disposition home or self-care (01) ==
LOC: Rad HDHVI 09:34
PROVIDERS: ATTEND Internal Medicine Cardiovascular Disease
DX: I25.10 Atherosclerotic heart disease of native coronary artery without angina pectoris (principal); J44.9 Chronic obstructive pulmonary disease, unspecified; I10 Essential (primary) hypertension; E78.00 Pure hypercholesterolemia, unspecified; M54.5 Low back pain; M25.569 Pain in unspecified knee; Z82.49 Family history of ischemic heart disease and other diseases of the circulatory system
CPT/HCPCS: 78452; 93005; 93306; 96374; 96375; A9500; J0153

== ENCOUNTER → 2019-10-18 | Outpatient (CLI) | payer BC, MEDICARE ==
[~2019-10-18] MED LIST changes: -ADENOSINE 51 MG in GIVE UN-DILUTED 0 ML IV ONE; -ADENOSINE 90 MG/30 ML INJ IV ONE; +ASCO100076 PO; +AZIL40TA3 PO; +BIOT10004 PO; +CHOL100067 PO; +GABA300C10 PO; +LORA0.5T12 PO; +MAGN400C2 PO; +OXYC30TA77 PO; +OXYC325T14 PO; +PRED-158 PO
== END | disposition home or self-care (01) ==
LOC: Rad HDHVI 14:12
PROVIDERS: ATTEND Internal Medicine Cardiovascular Disease
DX: I63.9 Cerebral infarction, unspecified (principal); I10 Essential (primary) hypertension; I65.22 Occlusion and stenosis of left carotid artery
CPT/HCPCS: 93880

== ENCOUNTER 2019-10-26 23:21 | Inpatient (IN) | payer BC, MEDICARE ==
[~2019-10-26] VITALS: Ht 154.9 cm; Wt 60.2 kg
[~2019-10-26 23:21] MED LIST changes: -ASCO100076 PO; -AZIL40TA3 PO; -BIOT10004 PO; -CHOL100067 PO; -GABA300C10 PO; -LORA0.5T12 PO; -MAGN400C2 PO; -OXYC30TA77 PO; -OXYC325T14 PO; -PRED-158 PO
[2019-10-27 00:26] LABS: Basophils # (auto) 0.1 10 ^3/uL (0-0.2); Basophils % (auto) 0.7 % (0.0-2.0); Eosinophils # (auto) 0 10 ^3/uL (0-0.8); Eosinophils % (auto) 0.1 % (0.0-7.0); Hematocrit 35.3 % (36.0-46.0); Hemoglobin 12.5 g/dL (12.2-16.2); Lymphocytes # (auto) 2.5 10 ^3/uL (0.4-5.4); Mean Corpuscular Hgb Conc. 35.3 g/dL (32.0-36.0); Mean Corpuscular Volume 93.3 fL (80.0-100.0); Monocytes % (auto) 6.4 % (0.0-12.0); Neutrophils # (auto) 11.9 10 ^3/uL (1.6-8.6); Neutrophils % (auto) 76.8 % (37.0-80.0); Platelet Count (auto) 308 10^3/uL (140-450); Red Blood Cells 3.78 10^6/uL (4.0-5.20); Red Cell Distribution Width 14.6 % (11.8-14.3); White Blood Cell 15.5 10^3/uL (4.4-10.8)
[2019-10-27 00:34] LABS: Albumin 3.2 g/dL (3.4-5.0); BUN/Creatinine Ratio 30.5; Calcium 8.8 mg/dL (8.5-10.1); Magnesium 1.9 mg/dL (1.6-2.6); Potassium 4.3 mmol/L (3.5-5.1)
[2019-10-27 00:39] LABS: Bilirubin, Total 0.6 mg/dL (0.2-1.0); Total Protein 6.7 g/dL (6.4-8.2)
[2019-10-27 00:51] LABS: Urine Bacteria MANY /hpf (None Seen); Urine Blood Negative /uL (Negative); Urine Hyaline Cast FEW /lpf (0 - 2); Urine WBC 14 /hpf (0 - 5)
[2019-10-27 01:02] LABS: Alcohol, Urine < 3.0 mg/dL (0-5); Amphetamine Screen, Urine NEGATIVE (NEGATIVE); Barbiturate Scree,Urine NEGATIVE (NEGATIVE); Benzodiazephine Screen, Urine NEGATIVE (NEGATIVE); Cannabinoid Screen, Urine NEGATIVE (NEGATIVE); Cocaine Screen, Urine NEGATIVE (NEGATIVE); Opiate Scree,Urine NEGATIVE (NEGATIVE); Phencyclidine Screen, Urine NEGATIVE (NEGATIVE)
[2019-10-27] MEDS ORDERED: SODIUM CHLORIDE 0.9% 1,000 ML IV ONE (02:00)
[2019-10-27] MEDS ORDERED: cefTRIAXone 1GM/50ML D5W 50 ML IV ONE (02:00)
[2019-10-27] MEDS ORDERED: MEPERIDINE HCL (25 MG/ML) 1ML VIAL IV ONE ×2 (02:15→06:30)
[2019-10-27] MEDS ORDERED: PHENAZOPYRIDINE HCL 100 MG TAB PO ONE (05:30)
[2019-10-27] MEDS ORDERED: TEMAZEPAM 15 MG CAP PO PRN (06:45)
[2019-10-27] MEDS ORDERED: SODIUM CHLORIDE 0.9% 1,000 ML IV SCH (06:45)
[2019-10-27] MEDS ORDERED: ONDANSETRON HCL 4 MG/2 ML VIAL IV PRN (06:45)
[2019-10-27] MEDS ORDERED: ACETAMINOPHEN 325 MG TAB PO PRN (06:45)
[2019-10-27] MEDS ORDERED: NITROGLYCERIN 0.4 MG SL TAB SL PRN (07:15)
[2019-10-27] MEDS ORDERED: MORPHINE SULF INJ 2 MG/ML SYRINGE 1ML IV PRN (07:15)
[2019-10-27] MEDS ORDERED: cefTRIAXone 1GM/50ML D5W 50 ML IV SCH (09:00)
[2019-10-27] MEDS: PANTOPRAZOLE 40 MG TAB PO SCH (10:14)
--- NOTE | 2019-10-27 10:32 | NUR ---
Telemetry admit from ER AYDEN LOVE admitted to Telemetry unit after SBAR received. Patient oriented to KORI VELASCO, primary RN, unit, room, bed, and unit policies regarding patient care and visiting hours. Patient now on continuous telemetry monitoring, tele box # 87 and telemetry reading on arrival to unit is SINUS RHYTHM. Patient placed on bedside oxygen at 2lpm via nasal cannula, weighed by bedscale and encouraged to call if they need something. All questions and concerns addressed, patient verbalized understanding.
--- NOTE | 2019-10-27 10:50 | NUR ---
Dr Luis at bedside.
[2019-10-27 10:55] VITALS: BP 98/65
[2019-10-27 11:06] LABS: Potassium 4.6 mmol/L (3.5-5.1)
[2019-10-27 11:10] LABS: BUN/Creatinine Ratio 31.9
--- NOTE | 2019-10-27 12:00 | NUR ---
DR Drake at bedside. Received new verbal order, will continue care.
[2019-10-27] MEDS: OXYCODONE W/ ACETAMINOPHEN 5/325MG TABLET PO PRN ×2 (12:55→19:34)
--- NOTE | 2019-10-27 12:55 | NUR ---
PATIENT IS COMPLAINING OF LOWER BACK PAIN, NOTED GRIMACING AND VERY UNCOMFORTABLE, GAVE PERCOCET PRN ORDERED BY MD.
[2019-10-27 13:05] LABS: Creatinine, Urine 15 mg/dL (30.0-125.0); Sodium Urine 62 mmol/L (40-220)
--- NOTE | 2019-10-27 13:55 | NUR ---
PATIENT SAID THAT THE PAIN IS STILL MAYA SAME, POSITIONED COMFORTABLY.
[2019-10-27 14:19] VITALS: BP 98/65
[2019-10-27] MEDS: PIPERACILLIN-TAZO 4.5GM 100 ML IV SCH ×2 (14:27→21:40)
[2019-10-27 16:25] VITALS: BP 133/70
[2019-10-27] MEDS ORDERED: GABA300C10 PO (18:17)
[2019-10-27] MEDS ORDERED: OXYC30TA77 PO (18:17)
[2019-10-27] MEDS ORDERED: OXYC325T14 PO (18:17)
[2019-10-27] MEDS ORDERED: MAGN400C2 PO (18:17)
[2019-10-27] MEDS ORDERED: BIOT10004 PO (18:17)
[2019-10-27] MEDS ORDERED: ASCO100076 PO (18:17)
[2019-10-27] MEDS ORDERED: PRED-158 PO (18:17)
[2019-10-27] MEDS ORDERED: AZIL40TA3 PO (18:17)
[2019-10-27] MEDS ORDERED: CHOL100067 PO (18:17)
[2019-10-27] MEDS ORDERED: LORA0.5T12 PO (18:17)
--- NOTE | 2019-10-27 19:30 | NUR ---
Opening Shift Note Assumed care of patient, awake and alert oriented x4. No S/S of distress/SOB noted. Instructed on POC and to call for assist PRN. Bed is in lowest locked position with bed rails up x2 and call light is within reach of the patient.
--- NOTE | 2019-10-27 19:34 | NUR ---
PATIENT COMPLAINING OF LOWER BACK PAIN, GAVE PERCOCET PO PRN ORDERED BY MD. ENDORSED TO NIGHT NURSE.
--- NOTE | 2019-10-27 19:43 | NUR ---
CONTACTED DR BOWERS: PATIENT WANTS TO TAKE HER GABAPENTIN ACCORDING TO MED REC. CONTACTED DR BOWERS IN REGARDS TO PATIENTS GABAPENTIN. WAITING FOR CALL BACK.
--- NOTE | 2019-10-27 21:55 | NUR ---
Contacted Dr Drake regarding pain: Patient has back pain that is 9/10 not relieved with prn Percocet and is requesting something stronger for pain. Left message with DR. Drake at this time regarding patients unrelieved back pain. Provided patient with heat packs to assist with patients back pain. Waiting for call back.
--- NOTE | 2019-10-27 21:57 | NUR ---
ROBINSON CONTACTED BACK: APPROVED FOR PATIENT TO HAVE GABAPENTIN ACCORDING TO MED REC. TO PLACE ORDERS.
[2019-10-27] MEDS: GABAPENTIN 300 MG CAP PO SCH (23:15)
--- NOTE | 2019-10-27 23:39 | NUR ---
ROBINSON CONTACTED BACK: Dr Drake made aware of patients unrelieved back pain. New orders received for pain medication. To place orders. Addendum: 10/28/19 at 0025 by Namrata Agudelo RN RN ORDERED Toradol 30mg q6hour prn. Addendum: 10/28/19 at 0623 by Namrata Agudelo RN RN ORDERED Toradol 30mg q6hour prn IV
[2019-10-28 00:28] VITALS: BP 91/59
[2019-10-28] MEDS: KETOROLAC TROMETH 15 mg/ml 1ML VL IV PRN ×2 (03:34→10:24)
[2019-10-28 05:22] VITALS: BP 98/53
[2019-10-28] MEDS: PIPERACILLIN-TAZO 4.5GM 100 ML IV SCH ×3 (05:37→21:34)
[2019-10-28] MEDS: GABAPENTIN 300 MG CAP PO SCH ×4 (05:37→23:31)
[2019-10-28] MEDS: OXYCODONE W/ ACETAMINOPHEN 5/325MG TABLET PO PRN ×3 (05:38→20:44)
[2019-10-28 06:10] LABS: Basophils # (auto) 0.1 10 ^3/uL (0-0.2); Basophils % (auto) 0.6 % (0.0-2.0); Eosinophils # (auto) 0.1 10 ^3/uL (0-0.8); Eosinophils % (auto) 0.5 % (0.0-7.0); Hematocrit 35.3 % (36.0-46.0); Hemoglobin 12.3 g/dL (12.2-16.2); Lymphocytes # (auto) 2.7 10 ^3/uL (0.4-5.4); Lymphocytes % (auto) 24.7 % (10.0-50.0); Mean Corpuscular Hemoglobin 32.9 pg (28.0-32.0); Mean Corpuscular Hgb Conc. 34.7 g/dL (32.0-36.0); Mean Corpuscular Volume 94.8 fL (80.0-100.0); Monocytes # (auto) 0.9 10 ^3/uL (0-1.3); Monocytes % (auto) 8.1 % (0.0-12.0); Neutrophils # (auto) 7.3 10 ^3/uL (1.6-8.6); Neutrophils % (auto) 66.1 % (37.0-80.0); Platelet Count (auto) 284 10^3/uL (140-450); Red Blood Cells 3.73 10^6/uL (4.0-5.20); Red Cell Distribution Width 14.8 % (11.8-14.3); White Blood Cell 11.1 10^3/uL (4.4-10.8)
[2019-10-28 06:21] LABS: BUN/Creatinine Ratio 15.6; Calcium 8.5 mg/dL (8.5-10.1); Potassium 3.8 mmol/L (3.5-5.1)
--- NOTE | 2019-10-28 07:15 | NUR ---
Morning note Patient resting in bed with even and unlabored respirations; eyes closed, no distress noted. fall precautions in place with call light within reach and bed alarm on for safety.
[2019-10-28] MEDS: PANTOPRAZOLE 40 MG TAB PO SCH (08:26)
[2019-10-28 08:37] VITALS: BP 100/52
--- NOTE | 2019-10-28 11:57 | NUR ---
RE: Pain management patient reports pain is 9/10 located in BUE, BLE and her back. Patient states "I'm jerking and can't control it." Patient reports current PRN pain medication is not adequately managing her pain. This RN notified Dr. Drake. Message left for .
[2019-10-28 13:00] VITALS: BP 90/43
--- NOTE | 2019-10-28 13:32 | NUR ---
RE: medication not available - called pharmacy Called pharmacy to request scheduled medication. Medication to be delivered to unit per pharmacy staff member.
[2019-10-28] MEDS ORDERED: SODIUM CHLORIDE 0.9% 1,000 ML IV ONE (14:45)
--- NOTE | 2019-10-28 14:45 | NUR ---
RE: IVF ordered IVF to be administered after administration of scheduled IV antibiotic is completed.
[2019-10-28] MEDS: HYDROmorphone HCL 2 MG/ML VL IV PRN ×2 (15:20→19:42)
--- NOTE | 2019-10-28 15:50 | NUR ---
RE: Pain Patient reports pain has improved after administration of PRN pain medication. Patient reports pain is tolerable and that she is comfortable. Respirations even and unlabored on room air, no distress noted.
--- NOTE | 2019-10-28 16:00 | NUR ---
was at bedside - Dr. Drake This RN was at bedside.
--- NOTE | 2019-10-28 16:13 | NUR ---
IV removed/IV started Patient notified staff that IV had been removed "while moving in bed". IV site assessed. Dressing applied. No trauma to site. IV catheter assessed. IV catheter intact. 20G IV started to the LFA with clean technique. IV secured. IV education provided. Patient verbalized understanding. Bed returned to lowest locked position with call light within reach. Bed alarm on for safety.
[2019-10-28 16:48] VITALS: BP 128/75
--- NOTE | 2019-10-28 18:32 | NUR ---
RE: pain Patient reports pain in the BUE and BLE. Patient requesting pain medication. Informed patient that PRN medication cannot be administered due to MD order of frequency. Patient verbalized understanding. Administered scheduled PO medication. Patient stated "It's fine. I'm okay. I'll wait." Patient resting in bed with even and unlabored respirations on room air, no distress noted. No facial grimacing noted. Call light within reach.
--- NOTE | 2019-10-28 18:46 | NUR ---
Closing note Patient resting in bed, respirations even and unlabored on room air, no distress noted. Fall precautions in place with call light within reach, bed alarm on for safety.
--- NOTE | 2019-10-28 19:15 | NUR ---
Care endorsed to LITA Ott.
[2019-10-28 22:05] VITALS: BP 100/65
--- NOTE | 2019-10-29 00:30 | NUR ---
Patient Anxious: Patient was anxious screaming for help. Went to assist patient who stated "Im hurting, Im hurting everywhere!" Asked patient where she was hurting and patient stated "My arms, my legs and my back!" Patient rated pain as a 10/10. To medicate with PRN pain medication. Readjusted patient back into bed, provided patient with heat packs for back.
[2019-10-29] MEDS: HYDROmorphone HCL 2 MG/ML VL IV PRN ×3 (00:34→18:15)
--- NOTE | 2019-10-29 01:12 | NUR ---
Left Message with Dr. Drake: Patient having increased anxiety stating "I have pain everywhere. I cant handle this pain! I need my Ativan! Its not working!" Contacted Dr. Drake at this time and left a message regarding the patient having pain and anxiety and to make MD aware that patient is requesting something for anxiety. Waiting for call back.
[2019-10-29] MEDS ORDERED: LORazepam 2MG/ML-1ML VIAL IV PRN (01:30)
--- NOTE | 2019-10-29 01:33 | NUR ---
ROBINSON CONTACTED BACK: Dr Drake made aware of patients anxiety and persistent pain. New order received for Ativan 1mg IV BID prn for anxiety. To place orders.
[2019-10-29] MEDS: LORazepam 2MG/ML-1ML VIAL IV PRN ×2 (01:47→21:33)
--- NOTE | 2019-10-29 02:39 | NUR ---
Patient resting in bed: Patient resting in bed with breaths even and unlabored. No s/s of distress SOB or pain noted at this time. Bed alarm is armed.
[2019-10-29 05:10] VITALS: BP 122/63
[2019-10-29] MEDS: OXYCODONE W/ ACETAMINOPHEN 5/325MG TABLET PO PRN ×2 (06:15→20:00)
[2019-10-29] MEDS: GABAPENTIN 300 MG CAP PO SCH ×3 (06:15→18:02)
[2019-10-29] MEDS: PIPERACILLIN-TAZO 4.5GM 100 ML IV SCH ×3 (06:15→22:16)
--- NOTE | 2019-10-29 07:30 | NUR ---
Opening Shift Note Assumed care of patient, currently asleep. No S/S of distress/SOB or pain. Will continue to monitor for changes Q1hr and PRN.
[2019-10-29 08:00] VITALS: BP 127/50
[2019-10-29 09:00] VITALS: BP 127/50
--- NOTE | 2019-10-29 09:00 | NUR ---
gave update to the over the phone
--- NOTE | 2019-10-29 09:45 | NUR ---
Attempted PT eval but pt was eating breakfast. Will attempt again later.
[2019-10-29 10:01] LABS: Basophils # (auto) 0.1 10 ^3/uL (0-0.2); Basophils % (auto) 0.6 % (0.0-2.0); Eosinophils # (auto) 0.1 10 ^3/uL (0-0.8); Eosinophils % (auto) 0.9 % (0.0-7.0); Hemoglobin 11.6 g/dL (12.2-16.2); Lymphocytes # (auto) 2.2 10 ^3/uL (0.4-5.4); Lymphocytes % (auto) 24.5 % (10.0-50.0); Mean Corpuscular Hemoglobin 33.7 pg (28.0-32.0); Mean Corpuscular Hgb Conc. 35.2 g/dL (32.0-36.0); Monocytes # (auto) 0.7 10 ^3/uL (0-1.3); Neutrophils # (auto) 6.1 10 ^3/uL (1.6-8.6); Platelet Count (auto) 228 10^3/uL (140-450); Red Blood Cells 3.44 10^6/uL (4.0-5.20); Red Cell Distribution Width 14.7 % (11.8-14.3); White Blood Cell 9.2 10^3/uL (4.4-10.8)
[2019-10-29 10:15] LABS: BUN/Creatinine Ratio 13.7; Calcium 8.1 mg/dL (8.5-10.1); Potassium 3.3 mmol/L (3.5-5.1)
[2019-10-29] MEDS ORDERED: POTASSIUM EFFERVESENT TAB 25 MEQ PO ONE (10:30)
[2019-10-29] MEDS: PANTOPRAZOLE 40 MG TAB PO SCH (10:58)
--- NOTE | 2019-10-29 11:40 | NUR ---
REPORT RECEIVED REPORT FROM LITA PARISI. WILL CONTINUE TO MONITOR
[2019-10-29 13:00] VITALS: BP 101/64
--- NOTE | 2019-10-29 13:28 | NUR ---
Attempted PT eval but pt refused stating she needs a bed mireles. RN consulted. Will attempt again later.
[2019-10-29 17:00] VITALS: BP 121/74
--- NOTE | 2019-10-29 18:05 | NUR ---
PAIN PATIENT C/O 04/19 PAIN TO HER LOWER BACK. PATIENT STATED "HER BACK WAS ACHY AND THAT SHE DOESN'T FEEL GOOD." WILL MEDICATE ORDERED
--- NOTE | 2019-10-29 19:30 | NUR ---
Opening Shift Note Assumed care of patient. Patient is awake and alert. No S/S of distress/SOB. Instructed on POC and to call for assist PRN, will continue to monitor for changes Q1hr and PRN. Bed locked in lowest position and bed rails up x2. Call light within reach.
--- NOTE | 2019-10-29 20:02 | NUR ---
Patient pain level at 9/10. Appropriate PRN medication not given d/t medication given 1.5 hours ago and is ordered as Q4PRN pain medication. Percocet given instead.
[2019-10-29 22:00] VITALS: BP 123/88
[2019-10-30] VITALS (7 sets, daily range): BP systolic 91–130; BP diastolic 51–78
[2019-10-30] MEDS: GABAPENTIN 300 MG CAP PO SCH ×4 (00:11→17:29)
[2019-10-30] MEDS: PIPERACILLIN-TAZO 4.5GM 100 ML IV SCH ×3 (06:12→21:27)
--- NOTE | 2019-10-30 07:00 | NUR ---
Opening Shift Note Assumed care of patient, Sleeping currently. No S/S of distress/SOB or pain. Will continue to monitor for changes Q1hr and PRN.
--- NOTE | 2019-10-30 08:03 | NUR ---
patient accidentally pulled out iv because the line got caught underneath the patient's blankets. catheter is intact and no bleeding noted at site. Will place a new IV.
--- NOTE | 2019-10-30 08:20 | NUR ---
IV insertion IV access obtained, via clean sterile technique by inserting 22 gauge catheter at left antecubital after 1 attempt. IV secured properly. No trauma to site. Patient tolerated well.
[2019-10-30] MEDS: HYDROmorphone HCL 2 MG/ML VL IV PRN ×3 (08:25→21:24)
[2019-10-30] MEDS: PANTOPRAZOLE 40 MG TAB PO SCH (10:12)
[2019-10-30 11:00] LABS: BUN/Creatinine Ratio 8.7; Calcium 8.5 mg/dL (8.5-10.1); Potassium 3.7 mmol/L (3.5-5.1)
[2019-10-30] MEDS: LORazepam 2MG/ML-1ML VIAL IV PRN (11:54)
--- NOTE | 2019-10-30 19:30 | NUR ---
Opening Shift Note Assumed care of patient, from Pee LONDON. Patient is currently laying in bed, eyes closed, with even and unlabored respirations noted. No signs/symptoms of distress or pain noted at this time. Bed is locked in lowest position, side rails x2 are up, call light is within reach, and bed alarm is on.
--- NOTE | 2019-10-30 21:25 | NUR ---
Pain Upon entering patient's room patient was found crying. This RN asked patient what was wrong and patient stated "pain." This RN asked patient where she was having pain and patient responded that it was generalized pain (pain scale 10/10). This RN educated patient on pain management and to call for assistance and as needed, patient verbalized understanding. Patient was medicated for pain as ordered by MD (see eMAR).
--- NOTE | 2019-10-30 21:30 | NUR ---
Elimination Patient noted to have a moderate size bowel movement. Patient cleaned and repositioned in bed. Patient tolerated well. Bed is locked in lowest position, side rails x 2 are up, call light is within reach, and bed alarm is on.
--- NOTE | 2019-10-30 21:54 | NUR ---
Pain Reassessment Patient noted laying in bed with eyes closed, even and unlabored respirations noted. No signs/symptoms of distress or pain noted at this time. Bed is locked in lowest position, side rails x 2 are up, call light is within reach, and bed alarm is on.
--- NOTE | 2019-10-30 23:25 | NUR ---
Received call from son Received a call from son, after obtaining and verifying password, updated son on patient's status. All questions and concerns addressed and answered.
[2019-10-31] VITALS (7 sets, daily range): BP systolic 94–157; BP diastolic 46–94
[2019-10-31] MEDS: GABAPENTIN 300 MG CAP PO SCH ×4 (00:12→18:02)
[2019-10-31] MEDS: OXYCODONE W/ ACETAMINOPHEN 5/325MG TABLET PO PRN ×2 (00:48→18:02)
--- NOTE | 2019-10-31 00:48 | NUR ---
Pain Patient is complaining of generalized pain (pain scale 8/10). Patient medicated for pain as ordered by MD (see eMAR). Patient reposition and is laying in bed with even and unlabored respirations. Bed is locked in lowest position, side rails x 2 are up, call light is within reach, and bed alarm is on.
[2019-10-31] MEDS: PIPERACILLIN-TAZO 4.5GM 100 ML IV SCH ×3 (05:02→21:46)
[2019-10-31] MEDS: HYDROmorphone HCL 2 MG/ML VL IV PRN ×3 (05:16→21:47)
--- NOTE | 2019-10-31 05:16 | NUR ---
Pain Patient is complaining of generalized body pain (pain scale 9/10). Patient medicated for pain as ordered by MD (see eMAR).
--- NOTE | 2019-10-31 07:28 | NUR ---
Received patient from [facility] shift rn. Patient is alert and oriented, denies SOB, no s/s of distress, denies at this time. Patient in the lowest possible position with call light within reach. Assisted to bedpan. Will continue to monitor for any changes q1hr and prn.
[2019-10-31] MEDS: PANTOPRAZOLE 40 MG TAB PO SCH (09:29)
[2019-10-31 11:50] LABS: BUN/Creatinine Ratio 7.3; Calcium 8.6 mg/dL (8.5-10.1); Potassium 3.1 mmol/L (3.5-5.1)
[2019-10-31] MEDS ORDERED: POTASSIUM CHL 20 Meq TABLET PO ONE (12:45)
[2019-10-31] MEDS ORDERED: POTASSIUM EFFERVESENT TAB 25 MEQ PO ONE (13:15)
[2019-10-31 13:46] LABS: Basophils # (auto) 0 10 ^3/uL (0-0.2); Basophils % (auto) 0.6 % (0.0-2.0); Eosinophils # (auto) 0.1 10 ^3/uL (0-0.8); Eosinophils % (auto) 1.1 % (0.0-7.0); Hematocrit 34.3 % (36.0-46.0); Lymphocytes # (auto) 1.9 10 ^3/uL (0.4-5.4); Lymphocytes % (auto) 28.3 % (10.0-50.0); Mean Corpuscular Hemoglobin 33.7 pg (28.0-32.0); Mean Corpuscular Hgb Conc. 35.1 g/dL (32.0-36.0); Monocytes # (auto) 0.6 10 ^3/uL (0-1.3); Monocytes % (auto) 9.5 % (0.0-12.0); Neutrophils # (auto) 4.1 10 ^3/uL (1.6-8.6); Neutrophils % (auto) 60.5 % (37.0-80.0); Nucleated Red Blood Cells % 0.1 %; Platelet Count (auto) 245 10^3/uL (140-450); Red Blood Cells 3.58 10^6/uL (4.0-5.20); Red Cell Distribution Width 14.8 % (11.8-14.3); White Blood Cell 6.7 10^3/uL (4.4-10.8)
[2019-10-31 13:52] LABS: Albumin 2.7 g/dL (3.4-5.0); Bilirubin, Direct 0.2 mg/dL (0-0.2)
[2019-10-31 13:56] LABS: Bilirubin, Total 1.1 mg/dL (0.2-1.0); Total Protein 6.2 g/dL (6.4-8.2)
--- NOTE | 2019-10-31 19:30 | NUR ---
Opening Shift Note Assumed care of patient. Patient is currently laying in bed, eyes closed, with even and unlabored respirations noted. No signs/symptoms of distress or pain noted at this time. Bed is locked in lowest position, side rails x2 are up, call light is within reach, and bed alarm is on.
[2019-11-01] VITALS (7 sets, daily range): BP systolic 94–114; BP diastolic 46–77
[2019-11-01] MEDS: GABAPENTIN 300 MG CAP PO SCH ×4 (00:33→18:03)
[2019-11-01] MEDS: HYDROmorphone HCL 2 MG/ML VL IV PRN ×2 (01:38→21:50)
[2019-11-01] MEDS: OXYCODONE W/ ACETAMINOPHEN 5/325MG TABLET PO PRN ×3 (03:50→18:04)
[2019-11-01] MEDS: PIPERACILLIN-TAZO 4.5GM 100 ML IV SCH ×3 (05:50→21:50)
--- NOTE | 2019-11-01 07:25 | NUR ---
Opening Shift Note Assumed care of patient, awake and alert, discomfort noted, denies SOB and reports 6/10 pain. Instructed on plan of care and advised to call for assistance as needed, reinforcement needed. Assisted with breakfast tray. Bed in low and locked position with side rails x 2 up, call light and phone within reach. Will continue to monitor q1hr and prn.
[2019-11-01] MEDS: LORazepam 2MG/ML-1ML VIAL IV PRN ×2 (10:39→23:09)
[2019-11-01] MEDS: PANTOPRAZOLE 40 MG TAB PO SCH (10:39)
[2019-11-01 14:02] LABS: BUN/Creatinine Ratio 6.8; Calcium 8.6 mg/dL (8.5-10.1); Potassium 3.3 mmol/L (3.5-5.1)
--- NOTE | 2019-11-01 18:33 | NUR ---
PATIENT OFFERED HEAT PACK TO HELP WITH CHRONIC PAIN RELIEF. PATIENT ENCOURAGED TO CALL FOR ASSISTANCE. WILL CONTINUE TO MONITOR Q1HR AND PRN.
--- NOTE | 2019-11-01 21:40 | NUR ---
Received call from son Received a call from son, after obtaining and verifying password, updated son on patient's status. All questions and concerns addressed and answered.
--- NOTE | 2019-11-01 21:45 | NUR ---
IV insertion IV access obtained, via clean sterile technique by inserting gauge catheter 20 at right forearm after 1 attempt. IV secured properly. No trauma to site. Patient tolerated well.
[2019-11-01] MEDS: POTASSIUM EFFERVESENT TAB 25 MEQ PO SCH (21:50)
--- NOTE | 2019-11-01 21:50 | NUR ---
IV removal IV to left AC DC'd with clean sterile technique, catheter fully intact. Pressure dressing applied to site. Patient tolerated well.
[2019-11-02] MEDS: GABAPENTIN 300 MG CAP PO SCH ×4 (00:15→17:20)
[2019-11-02] MEDS: OXYCODONE W/ ACETAMINOPHEN 5/325MG TABLET PO PRN ×3 (01:44→17:28)
[2019-11-02] MEDS: HYDROmorphone HCL 2 MG/ML VL IV PRN (03:02)
[2019-11-02 05:00] VITALS: BP 127/73
[2019-11-02] MEDS: PIPERACILLIN-TAZO 4.5GM 100 ML IV SCH ×3 (05:44→21:35)
[2019-11-02 07:33] VITALS: BP 94/60
[2019-11-02 09:00] VITALS: BP 105/69
--- NOTE | 2019-11-02 09:10 | NUR ---
RN requested PT tx later due to pt "just got her medication". Addendum: 11/02/19 at 1227 by Nael Wright PTA Amended: Links added.
--- NOTE | 2019-11-02 09:16 | NUR ---
MEDICATED WITH PERCOCET FOR PAIN 6/10 IN ABDOMEN.
[2019-11-02] MEDS: PANTOPRAZOLE 40 MG TAB PO SCH (09:31)
[2019-11-02] MEDS: POTASSIUM EFFERVESENT TAB 25 MEQ PO SCH ×2 (09:31→21:35)
[2019-11-02 13:00] VITALS: BP 114/68
[2019-11-02] MEDS: LORazepam 2MG/ML-1ML VIAL IV PRN (13:25)
--- NOTE | 2019-11-02 14:17 | NUR ---
Nutrition Assessment Notes Please refer to link for full assessment notes. Est energy needs: 5182-3781 kcals (23-25 kcal/kgBW) Est protein needs: 61-68 gms/day (1.0-1.1 gm/kgBW) Will continue to monitor and reassess prn. Addendum: 11/02/19 at [address] Amended: Links added.
[2019-11-02 16:56] VITALS: BP 129/77
--- NOTE | 2019-11-02 17:42 | NUR ---
MEDICATED WITH PERCOCET FOR ABDOMINAL PAIN 01/17
[2019-11-02 22:00] VITALS: BP 118/73
[2019-11-03] MEDS: GABAPENTIN 300 MG CAP PO SCH ×5 (00:12→22:29)
[2019-11-03] MEDS: OXYCODONE W/ ACETAMINOPHEN 5/325MG TABLET PO PRN ×3 (00:13→13:12)
[2019-11-03] MEDS: LORazepam 2MG/ML-1ML VIAL IV PRN ×2 (01:29→21:19)
[2019-11-03 02:00] VITALS: BP 128/70
[2019-11-03] MEDS: PIPERACILLIN-TAZO 4.5GM 100 ML IV SCH ×2 (06:20→13:29)
--- NOTE | 2019-11-03 07:45 | NUR ---
PT RESTING IN BED, PT APPEARS SLIGHTLY ANXIOUS. PT KNOW KARINA MCGILL, AND KNOW THAT SHE IS IN A HOSPITAL, BUT DOES NOT RECALL WHICH ONE. PT DOES NOT KNOW PRESIDENT. BED ALARM ON, PT SITTING UP TO EAT BREAKFAST. SIDE RAILS UP X2, BED IN LOWEST LOCKED POSITION, WILL CONTINUE TO MONITOR.
[2019-11-03 08:48] LABS: Albumin 2.6 g/dL (3.4-5.0); Calcium 8.8 mg/dL (8.5-10.1)
[2019-11-03 08:52] LABS: BUN/Creatinine Ratio 3.4; Bilirubin, Total 0.7 mg/dL (0.2-1.0); Total Protein 5.8 g/dL (6.4-8.2)
[2019-11-03 09:00] VITALS: BP 106/67
[2019-11-03] MEDS: POTASSIUM EFFERVESENT TAB 25 MEQ PO SCH ×2 (09:14→21:18)
[2019-11-03] MEDS: PANTOPRAZOLE 40 MG TAB PO SCH (09:15)
--- NOTE | 2019-11-03 10:55 | NUR ---
CALLED AND LEFT MESSAGE FOR DR BOWERS. NOTIFIED MD HR 120'S AND POT 3.0 AND 50 MEQ GIVEN THIS MORNING. ALSO THAT PATIENT'S REPORTING NAUSEA AND STOMACH PAIN. AWAITING CALL BACK.
--- NOTE | 2019-11-03 11:10 | NUR ---
PT REPORTS NAUSEA AND STOMACH PAIN, PRN PERCOCET ALREADY GIVEN. PRN ZOFRAN GIVEN, WILL CONTINUE TO MONTITOR.
--- NOTE | 2019-11-03 12:15 | NUR ---
DR BOWERS CALLED BACK, NEW ORDERS TO HOLD DIURETIC AND POTASSIUM IV K [place].
--- NOTE | 2019-11-03 12:18 | NUR ---
PT HAS NO DIURETICS ON BOARD.
[2019-11-03 12:19] VITALS: BP 128/66
--- NOTE | 2019-11-03 12:48 | NUR ---
HAD DIFFICULTY PUTTING IN K ORDERS FOR 50 MEQ, CALLED PHARMACY, THEY REPORT THEY WILL SEND ME THE K AND ASSIST WITH THE ORDER.
[2019-11-03] MEDS ORDERED: POTASSIUM CHLORIDE IV ONE (14:00)
[2019-11-03] MEDS ORDERED: D5W 5% IV ONE (14:00)
--- NOTE | 2019-11-03 14:05 | NUR ---
assessment Patient is a 64 year old female who is confused. Prior to admission patient resided with her Marcell and functioned with his assistance. Per Marcell patient has a fww and a wheelchair for home use. Patients PCP is Dr Drake. Marcos Marcell patient was on service with [email or web address] prior to admission. Marcell informed me patient may need SNF at [place] on discharge. I informed Marcell patients post discharge needs to be determined after PT evaluation. Patient has no advanced directive or POA. Marcell verbalized understanding. Addendum: 11/03/19 at 1409 by Kasia LENTZ Amended: Links added.
[2019-11-03] MEDS ORDERED: predniSONE 20 MG TAB PO ONE (15:30)
[2019-11-03 16:41] VITALS: BP 137/79
[2019-11-03] MEDS: CIPROFLOXACIN HCL 500 MG TAB PO SCH (21:18)
[2019-11-03 22:00] VITALS: BP 150/100
[2019-11-04 05:00] VITALS: BP 160/99
[2019-11-04] MEDS: GABAPENTIN 300 MG CAP PO SCH ×4 (05:09→23:21)
[2019-11-04] MEDS: OXYCODONE W/ ACETAMINOPHEN 5/325MG TABLET PO PRN ×4 (05:10→17:54)
--- NOTE | 2019-11-04 08:00 | NUR ---
PT RESTING IN BED. PT REPORTS SHE IS WET AND APPEARS ANXIOUS. PT BEDDING AND GOWN CHANGED, PT SHOSHANA AREA CLEANED, Z GUARD APPLIED TO BUTTOCKS. PREVIOUS IV OUT AND BANDAGED WITH PRESSURE DRESSING. NEW IV INSERTED, 22 G LAC ON ONE ATTEMPT USING STERILE TECHNIQUE. IV FLUSHED WITH NS AND SECURED. NEW ID BAND RETRIEVED FROM ADMISSIONS. WILL CONTINUE TO MONITOR.
[2019-11-04 08:39] VITALS: BP 126/82
[2019-11-04] MEDS: predniSONE 20 MG TAB PO SCH (09:47)
[2019-11-04] MEDS: POTASSIUM EFFERVESENT TAB 25 MEQ PO SCH ×2 (09:47→21:24)
[2019-11-04] MEDS: CIPROFLOXACIN HCL 500 MG TAB PO SCH ×2 (09:48→21:23)
[2019-11-04] MEDS: PANTOPRAZOLE 40 MG TAB PO SCH (09:48)
--- NOTE | 2019-11-04 11:38 | NUR ---
Pt reported to physical therapy she was in 8/10 pain. Went to give pt PRN, pt reports she wants to wait, med returned to [facility].
[2019-11-04 13:00] VITALS: BP 148/83
--- NOTE | 2019-11-04 16:27 | NUR ---
BED ALARM ON BUT PATIENT HAS REPOSITIONED SEVERAL TIMES WITHOUT ALARM GOING OFF, CALL ED PBX AND PAGED MAINTENANCE TO COME LOOK AT BED.
--- NOTE | 2019-11-04 16:28 | NUR ---
SPOKE WITH PATIENT AND UPDATED HIM ON POC, REPORTS HE WOULD LIKE PT TO GO TO SNF ON [place]. HE REPORTS HE NEEDS TO BE ABLE TO WORK AND IS CONCERNED ABOUT PT COMING HOME IF SHE CANT WALK.
--- NOTE | 2019-11-04 16:50 | NUR ---
MAINTENANCE CAME AND LOOKED AT BED, HE SUGGESTED SWITCHING BEDS. CALLED [facility]EL, BED SWITCHED, BED ALARM ON, WILL CONTINUE TO MONITOR.
[2019-11-04 17:00] VITALS: BP 124/72
[2019-11-04 22:00] VITALS: BP 141/80
--- NOTE | 2019-11-05 00:34 | NUR ---
Assumed care of patient Received report from Sabino LONDON. At this time patient resting comfortably in bed no s/s of distress or SOB, or pain. Call light and bedside table are within reach. Will continue to monitor Q1 and PRN.
[2019-11-05] MEDS: HYDROmorphone HCL 2 MG/ML VL IV PRN ×2 (02:53→10:16)
[2019-11-05] MEDS: LORazepam 2MG/ML-1ML VIAL IV PRN (03:56)
[2019-11-05 05:00] VITALS: BP 141/81
[2019-11-05] MEDS: GABAPENTIN 300 MG CAP PO SCH ×2 (05:44→13:11)
--- NOTE | 2019-11-05 08:00 | NUR ---
Morning note Patient resting in bed with even and unlabored respirations on room air, no distress noted. Eyes closed. Fall precautions in place with call light within reach; bed alarm on for safety.
[2019-11-05 09:00] VITALS: BP 133/77
[2019-11-05] MEDS: PANTOPRAZOLE 40 MG TAB PO SCH (10:15)
[2019-11-05] MEDS: POTASSIUM EFFERVESENT TAB 25 MEQ PO SCH (10:15)
[2019-11-05] MEDS: predniSONE 20 MG TAB PO SCH (10:15)
[2019-11-05] MEDS: CIPROFLOXACIN HCL 500 MG TAB PO SCH (10:15)
--- NOTE | 2019-11-05 11:30 | NUR ---
Physical therapy was at bedside Patient ambulated with PT.
[2019-11-05 13:00] VITALS: BP 130/80
[2019-11-05] MEDS: OXYCODONE W/ ACETAMINOPHEN 5/325MG TABLET PO PRN (13:12)
--- NOTE | 2019-11-05 13:48 | NUR ---
MD was at bedside - Dr. Drake; order received Notified MD of patient's c/o lower back pain. Order received and read back to verify. Patient okay for discharge after CT is completed.
--- NOTE | 2019-11-05 13:53 | NUR ---
Called prescription into patient's preferred pharmacy Spoke with sara Loyola.
--- NOTE | 2019-11-05 15:13 | NUR ---
Requested documentation faxed to [facility] Faxed to [phone].
--- NOTE | 2019-11-05 15:56 | NUR ---
Discharge Discharge education and paperwork provided to the patient per MD order. Patient instructed to call PCP on Thursday to schedule a follow up appointment. Patient informed that prescriptions have been called into preferred pharmacy. Patient verbalized understanding to all. IV removed with clean technique, catheter intact. Dressing applied. Patient tolerated well, no trauma or bleeding noted. Telemonitor removed and returned to Patient Engagement Systemsonitor tech. Patient reports having all personal belongings. Patient continues to have mild tremors. Patient is alert and oriented. Respirations are even and unlabored on room air, no distress noted.
--- NOTE | 2019-11-05 15:58 | NUR ---
Contacted patient's transportation - [facility] () Informed [facility] that patient is discharged and ready to be picked up. [facility] verbalized understanding. Discharge education, home health and ordered prescriptions discussed with [facility]. Brain verbalized understanding. Brain stated "Okay, I'm on my way to pick her up. I'm coming from [place]. It'll be about 30 minutes."
[2019-11-05 16:49] VITALS: BP 125/74
--- NOTE | 2019-11-05 17:00 | NUR ---
Transportation arrived to hospital Patient transferred to hospital lobby via wheelchair accompanied by staff member. Patient able to transfer self from wheelchair to vehicle with contact guard assistance. Patient reports having all personal belongings. Respirations even and unlabored, no distress noted.
--- NOTE | 2019-11-07 10:23 | NUR ---
regulation supervisor 11/05/2019 Per consult [facility] for PT. No call or page on this patient. Patient was previously on service with [facility]. I called and had RN edit ss consult. Will send referral to [facility] to resume. Addendum: 11/07/19 at 1025 by Kasia LENTZ Amended: Links added.
== END 2019-11-05 17:00 | disposition home or self-care (01) | DRG 871 ==
LOC: ER 23:25 → TELE 23:26 → TELE-WESTW 10-27 10:18
PROVIDERS: ADMIT Nurse Practitioner; ATTEND Internal Medicine Cardiovascular Disease
DX: A41.9 Sepsis, unspecified organism (principal); N17.0 Acute kidney failure with tubular necrosis; E87.1 Hypo-osmolality and hyponatremia; N30.01 Acute cystitis with hematuria; F03.90 Unspecified dementia, unspecified severity, without behavioral disturbance, psychotic disturbance, mood disturbance, and anxiety; F11.10 Opioid abuse, uncomplicated; G89.29 Other chronic pain; I25.10 Atherosclerotic heart disease of native coronary artery without angina pectoris; J44.9 Chronic obstructive pulmonary disease, unspecified; M19.90 Unspecified osteoarthritis, unspecified site; M79.7 Fibromyalgia; Z79.891 Long term (current) use of opiate analgesic; Z82.49 Family history of ischemic heart disease and other diseases of the circulatory system; Z86.73 Personal history of transient ischemic attack (TIA), and cerebral infarction without residual deficits; F41.9 Anxiety disorder, unspecified; I10 Essential (primary) hypertension; M48.061 Spinal stenosis, lumbar region without neurogenic claudication; Z79.899 Other long term (current) drug therapy; Z88.8 Allergy status to other drugs, medicaments and biological substances; Z90.49 Acquired absence of other specified parts of digestive tract; Z98.61 Coronary angioplasty status; Z98.1 Arthrodesis status
CPT/HCPCS: 36415; 70450; 71045; 72131; 80048; 80053; 80076; 80307; 81001; 82565; 82570; 83735; 83930; 83935; 84132; 84295; 84300; 84484; 84550; 85025; 87040; 87086; 87088; 87186; 87493; 87804; 93005; 97110; 97163; 97530; G0378; J0696; J2405; J2543; J7060

== ENCOUNTER 2020-01-20 22:48 | Inpatient (IN) | payer BC, MEDICARE ==
[~2020-01-20] VITALS: Ht 154.9 cm; Wt 59.0 kg
[~2020-01-20 22:48] MED LIST changes: +ASCO100076 PO; +AZIL40TA3 PO; +BIOT10004 PO; +CHOL100067 PO; -ENAL20TA PO; -GABA-339 PO; +GABA300C10 PO; +LORA0.5T12 PO; +MAGN400C2 PO; -OXY10CRT PO; +OXYC30TA77 PO; +OXYC325T14 PO; -PERCOT PO; +PRED-158 PO; -PRED1PAK9 PO
[2020-01-20 23:57] LABS: Basophils # (auto) 0 10 ^3/uL (0-0.2); Eosinophils # (auto) 0 10 ^3/uL (0-0.8); Hemoglobin 12.3 g/dL (12.2-16.2); Lymphocytes # (auto) 1.6 10 ^3/uL (0.4-5.4); Mean Corpuscular Volume 90.7 fL (80.0-100.0); Monocytes # (auto) 0.4 10 ^3/uL (0-1.3)
[2020-01-21 00:05] LABS: Basophils % (auto) 0.3 % (0.0-2.0); Eosinophils % (auto) 0.1 % (0.0-7.0); Hematocrit 35.8 % (36.0-46.0); Lymphocytes % (auto) 15.1 % (10.0-50.0); Mean Corpuscular Hemoglobin 31.1 pg (28.0-32.0); Mean Corpuscular Hgb Conc. 34.3 g/dL (32.0-36.0); Monocytes % (auto) 4.2 % (0.0-12.0); Neutrophils # (auto) 8.3 10 ^3/uL (1.6-8.6); Neutrophils % (auto) 80.3 % (37.0-80.0); Nucleated Red Blood Cells % 0.2 %; Platelet Count (auto) 329 10^3/uL (140-450); Red Blood Cells 3.95 10^6/uL (4.0-5.20); Red Cell Distribution Width 14.9 % (11.8-14.3); White Blood Cell 10.3 10^3/uL (4.4-10.8)
[2020-01-21 00:07] LABS: INR 0.95 (0.9-1.15); Partial Thromboplastin Time 23.6 sec (23.64-32.05)
[2020-01-21 00:10] LABS: Albumin 3.3 g/dL (3.4-5.0); Anion Gap 12 (5-15); BUN/Creatinine Ratio 23.3; Blood Urea Nitrogen 20 mg/dL (7-18); Calcium 8.5 mg/dL (8.5-10.1); Carbon Dioxide 25 mmol/L (21-32); Chloride 87 mmol/L (98-107); GFR African American 85 mL/min; GFR Non-African American 70 mL/min; Glucose 120 mg/dL (74-106); Magnesium 1.9 mg/dL (1.6-2.6); Potassium 3.6 mmol/L (3.5-5.1); Sodium 124 mmol/L (136-145)
[2020-01-21 00:18] LABS: Alanine Aminotransferase 21 U/L (13-56); Alkaline Phosphatase 68 U/L (45-117); Aspartate Aminotransferase 16 U/L (15-37); Bilirubin, Total 0.4 mg/dL (0.2-1.0); Total Protein 6.6 g/dL (6.4-8.2)
[2020-01-21 00:27] LABS: Urine Bacteria FEW /hpf (None Seen); Urine Blood Negative /uL (Negative); Urine Hyaline Cast FEW /lpf (0 - 2); Urine Specific Gravity 1.008 (1.001-1.035); Urine WBC 3 /hpf (0 - 5)
[2020-01-21] MEDS ORDERED: ONDANSETRON HCL 4 MG/2 ML VIAL IV ONE (00:45)
[2020-01-21] MEDS ORDERED: MORPHINE SULFATE 4 MG/ML SYR/VIAL IV ONE (00:45)
[2020-01-21] MEDS ORDERED: cloNIDine HCL 0.1 MG TAB PO PRN (04:30)
[2020-01-21] MEDS: SODIUM CHLORIDE 0.9% 1,000 ML IV SCH ×2 (04:44→21:04)
[2020-01-21 05:00] VITALS: BP 98/62
--- NOTE | 2020-01-21 05:50 | NUR ---
Telemetry admit from ER IVANAYDEN admitted to Telemetry unit after SBAR received. Patient oriented to ROSIE MESA, RN primary RN, MST unit, room 205, and unit policies regarding patient care and visiting hours. Patient now on continuous telemetry monitoring, tele box #34 and telemetry reading on arrival to unit is SR in the 70s. Patient placed on bedside oxygen, weighed by bed scale and encouraged to call if they need something. All questions and concerns addressed, patient verbalized understanding. Note: PATIENT ABLE TO TURN INDEPENDENTLY, BED IN LOWEST LOCKED POSITION, SIDE RAILS UP X2, AND CALL LIGHT WITHIN REACH. WILL CONTINUE TO MONITOR Q1HR PRN.
[2020-01-21] MEDS: HYDROcodone-ACET 5/325MG TAB PO PRN ×3 (07:25→20:12)
[2020-01-21 08:00] VITALS: BP 98/62
--- NOTE | 2020-01-21 08:20 | NUR ---
PATIENT C/O PAIN. WILL MEDICATE NEEDED.
[2020-01-21 09:00] VITALS: BP 98/62
[2020-01-21] MEDS: BIOTIN 1000 MCG PO SCH (10:00)
[2020-01-21] MEDS: cefTRIAXone 1GM/50ML D5W 50 ML IV SCH (11:25)
[2020-01-21] MEDS: LORazepam 0.5 MG TAB PO SCH ×2 (11:26→22:17)
[2020-01-21 11:27] LABS: Basophils # (auto) 0 10 ^3/uL (0-0.2); Basophils % (auto) 0.3 % (0.0-2.0); Eosinophils # (auto) 0.1 10 ^3/uL (0-0.8); Eosinophils % (auto) 0.7 % (0.0-7.0); Hematocrit 35.2 % (36.0-46.0); Hemoglobin 12.1 g/dL (12.2-16.2); Lymphocytes # (auto) 3.4 10 ^3/uL (0.4-5.4); Lymphocytes % (auto) 30.4 % (10.0-50.0); Mean Corpuscular Hgb Conc. 34.2 g/dL (32.0-36.0); Mean Corpuscular Volume 90.6 fL (80.0-100.0); Monocytes # (auto) 0.8 10 ^3/uL (0-1.3); Monocytes % (auto) 7.6 % (0.0-12.0); Neutrophils # (auto) 6.8 10 ^3/uL (1.6-8.6); Nucleated Red Blood Cells % 0.2 %; Platelet Count (auto) 317 10^3/uL (140-450); Red Blood Cells 3.89 10^6/uL (4.0-5.20); Red Cell Distribution Width 14.4 % (11.8-14.3); White Blood Cell 11.1 10^3/uL (4.4-10.8)
[2020-01-21] MEDS: MAGNESIUM OXIDE 400 MG TAB PO SCH (11:27)
[2020-01-21] MEDS: ASPirin-EC 81 mg tab PO SCH (11:27)
[2020-01-21 11:45] LABS: Potassium 3.2 mmol/L (3.5-5.1)
--- NOTE | 2020-01-21 11:46 | NUR ---
NOTIFIED DR. BOWERS NEED AN ORDER FOR ZOFRAN, PATIENT C/O OF NAUSEA AND ABDOMINAL PAIN WITH MORPHINE ADMINISTRATION. WILL PLACE ORDER.
[2020-01-21 11:52] LABS: BUN/Creatinine Ratio 23.4; Calcium 8.6 mg/dL (8.5-10.1)
[2020-01-21 13:13] VITALS: BP 104/68
--- NOTE | 2020-01-21 13:25 | NUR ---
PATIENT C/O PAIN. WILL MEDICATE NEEDED.
[2020-01-21 17:00] VITALS: BP 103/53
--- NOTE | 2020-01-21 18:13 | NUR ---
PATIENT C/O PAIN, WILL MEDICATE. PAIN IS SHARP, BACK, NECK AND ARMS.
[2020-01-21] MEDS: MORPHINE SULF INJ 2 MG/ML SYRINGE 1ML IV PRN ×2 (18:17→22:17)
[2020-01-21] MEDS: ONDANSETRON HCL 4 MG/2 ML VIAL IV PRN ×2 (18:17→22:17)
--- NOTE | 2020-01-21 18:35 | NUR ---
PATIENT SLEEPING ON RIGHT SIDE, NO S/S OF DISTRESS.
--- NOTE | 2020-01-21 19:45 | NUR ---
Opening Shift Note Received report from day shift RN. Assumed care of patient, awake and alert. Fall and safety precautions in place. Patient reconnected to tele monitor as patient leads were off. Patient in no S/S of distress/SOB. Instructed patient on her POC and to call for assist PRN, patient verbalized understanding and in agreement. Patient assisted to bedside commode and returned to bed safely. Call light within reach and able to use. Will continue to monitor for changes Q1hr and PRN.
[2020-01-21 22:00] VITALS: BP 104/58
[2020-01-22] MEDS: MORPHINE SULF INJ 2 MG/ML SYRINGE 1ML IV PRN ×3 (02:32→10:35)
[2020-01-22] MEDS: ONDANSETRON HCL 4 MG/2 ML VIAL IV PRN ×3 (02:33→10:35)
[2020-01-22 05:00] VITALS: BP 111/73
[2020-01-22 08:00] VITALS: BP 106/67
[2020-01-22] MEDS ORDERED: POTASSIUM CHL 20 Meq TABLET PO ONE (08:45)
[2020-01-22 09:00] VITALS: BP 106/67
[2020-01-22] MEDS: BIOTIN 1000 MCG PO SCH (10:00)
[2020-01-22] MEDS: predniSONE 20 MG TAB PO SCH (10:25)
[2020-01-22] MEDS: CLOPIDOGREL BISULFATE 75 MG TAB PO SCH (10:25)
[2020-01-22] MEDS: cefTRIAXone 1GM/50ML D5W 50 ML IV SCH (10:25)
[2020-01-22] MEDS: ASPirin-EC 81 mg tab PO SCH (10:25)
[2020-01-22] MEDS: MAGNESIUM OXIDE 400 MG TAB PO SCH (10:25)
[2020-01-22] MEDS: LORazepam 0.5 MG TAB PO SCH ×2 (10:25→21:27)
--- NOTE | 2020-01-22 10:45 | NUR ---
WARM COMPRESS PLACED THREE WARM COMPRESSES FOR LOWER BACK PAIN. WILL CONTINUE TO MONITOR. IEJ
--- NOTE | 2020-01-22 10:50 | NUR ---
DR. BOWERS AT BEDSIDE Addendum: 01/22/20 at 1056 by NICKI JULIAN RN RN NEW MEDICATION ORDERS, DC MORPHINE DC ZOFRAN, NORCO ADMIN IS NOW Q4HRS, AND ADD 75MG OF ULTRAM BID PER DR. BOWERS
--- NOTE | 2020-01-22 11:24 | NUR ---
ORDER NORCO IS 10MG/325MG. PER DR. BOWERS.
[2020-01-22 14:40] VITALS: BP 111/62
[2020-01-22] MEDS: HYDROcodone-ACET 10/325MG TAB PO PRN ×2 (14:44→18:39)
--- NOTE | 2020-01-22 15:35 | NUR ---
PATIENT REQUEST MEDICATION GABAPENTIN, ORDERED BY DR. BOWERS 600MG/TID. STARTING AT 2200.
--- NOTE | 2020-01-22 16:31 | NUR ---
AMA PATIENT REQUEST TO GO HOME, AMA. SPOUSE DID MOT ANSWER PHONE X3 . PATIENT NOTIFIED AND AGREED TO STAY.
[2020-01-22 16:42] VITALS: BP 109/61
[2020-01-22] MEDS: SODIUM CHLORIDE 0.9% 1,000 ML IV SCH ×2 (18:23→23:10)
--- NOTE | 2020-01-22 18:24 | NUR ---
IV removal IV DC'd with clean sterile technique, catheter fully intact. Pressure dressing applied to site. Patient tolerated well. NOTE: NOTED SWELLING, PAIN AND REDNESS OF THE RIGHT HAND.
--- NOTE | 2020-01-22 19:35 | NUR ---
Opening Shift Note Assumed care of patient, awake and alert. Fall and safety precautions in place. Patient in no S/S of distress/SOB. Instructed patient on her POC and to call for assist PRN, patient verbalized understanding and in agreement. Patient complaining of pain. Patient notified and MD would be made aware if current pain medication not effective. Call light within reach and able to use. Will continue to monitor for changes Q1hr and PRN.
--- NOTE | 2020-01-22 20:30 | NUR ---
IV insertion IV access obtained, via clean sterile technique by inserting 22 gauge catheter at Left Upper Arm after 1 attempt. IV secured properly. No trauma to site. Patient tolerated well.
--- NOTE | 2020-01-22 20:44 | NUR ---
Re: Pain Patient c/o severe pain using adult pain scale. Patient extremely restless and continuously complaining of pain at this time while in patient's room. Call MD Drake at this time. Left message and call back phone number provided. Awaiting call back. Will continue to monitor.
--- NOTE | 2020-01-22 20:59 | NUR ---
Re: MD Call back Received call-back from MD Drake. Updated MD on patient status and patient complaint. Received new orders (see new orders). Will carry out. Will continue to monitor.
[2020-01-22] MEDS: GABAPENTIN 300 MG CAP PO SCH (21:28)
[2020-01-22] MEDS: ATORVASTATIN 20 MG TAB PO SCH (21:28)
[2020-01-22] MEDS: HYDROmorphone HCL 2 MG/ML VL IV PRN (21:29)
[2020-01-22 22:21] VITALS: BP 151/97
[2020-01-23] MEDS: HYDROmorphone HCL 2 MG/ML VL IV PRN ×5 (01:42→23:38)
[2020-01-23 05:08] VITALS: BP 96/60
[2020-01-23] MEDS: GABAPENTIN 300 MG CAP PO SCH ×3 (05:49→21:33)
[2020-01-23] MEDS: HYDROcodone-ACET 5/325MG TAB PO PRN ×2 (05:50→17:11)
[2020-01-23 08:00] VITALS: BP 121/70
[2020-01-23 09:00] VITALS: BP 121/70
[2020-01-23] MEDS: cefTRIAXone 1GM/50ML D5W 50 ML IV SCH (09:41)
[2020-01-23] MEDS: predniSONE 20 MG TAB PO SCH (09:42)
[2020-01-23] MEDS: ASPirin-EC 81 mg tab PO SCH (09:42)
[2020-01-23] MEDS: BIOTIN 1000 MCG PO SCH (09:42)
[2020-01-23] MEDS: LORazepam 0.5 MG TAB PO SCH ×2 (09:42→21:33)
[2020-01-23] MEDS: MAGNESIUM OXIDE 400 MG TAB PO SCH (09:43)
[2020-01-23] MEDS: CLOPIDOGREL BISULFATE 75 MG TAB PO SCH (09:43)
[2020-01-23 13:00] VITALS: BP 126/73
--- NOTE | 2020-01-23 13:50 | NUR ---
NOTIFIED DR BOWERS OF PATIENTS POTASSIUM LEVEL OF 3.2, SODIUM LEVEL OF 130 AND PATIENTS COMPLAINT OF BEING CONSTIPATED.
[2020-01-23 16:34] VITALS: BP 135/74
--- NOTE | 2020-01-23 17:00 | NUR ---
DR CHOE (UROLOGIST) CONTACTED MATERIAL HANDLER LOADER AND INFORMED HER HE WOULD NOT BE SEEING THIS PATIENT AND DR PETERSON SHOULD BE CONSULTED. PER MATERIAL HANDLER LOADER, DR PETERSON WILL BE CONTACTED TOMORROW FOR CONSULT Addendum: 01/24/20 at 0712 by YARI DE LA ROSA RN RN WRONG PATIENT NOTE
[2020-01-23] MEDS: ATORVASTATIN 20 MG TAB PO SCH (21:33)
[2020-01-23] MEDS: PREGABALIN 25 MG CAP PO SCH (21:33)
[2020-01-23 22:00] VITALS: BP 143/77
[2020-01-23] MEDS: SODIUM CHLORIDE 0.9% 1,000 ML IV SCH (23:04)
[2020-01-24] VITALS (7 sets, daily range): BP systolic 124–148; BP diastolic 66–87
[2020-01-24] MEDS: HYDROmorphone HCL 2 MG/ML VL IV PRN ×5 (03:46→22:36)
[2020-01-24] MEDS: GABAPENTIN 300 MG CAP PO SCH ×3 (05:26→22:35)
[2020-01-24] MEDS: predniSONE 20 MG TAB PO SCH (09:37)
[2020-01-24] MEDS: ASPirin-EC 81 mg tab PO SCH (09:37)
[2020-01-24] MEDS: cefTRIAXone 1GM/50ML D5W 50 ML IV SCH (09:37)
[2020-01-24] MEDS: BIOTIN 1000 MCG PO SCH (09:37)
[2020-01-24] MEDS: PREGABALIN 25 MG CAP PO SCH ×2 (09:37→22:00)
[2020-01-24] MEDS: CLOPIDOGREL BISULFATE 75 MG TAB PO SCH (09:38)
[2020-01-24] MEDS: MAGNESIUM OXIDE 400 MG TAB PO SCH (09:38)
[2020-01-24] MEDS: LORazepam 0.5 MG TAB PO SCH ×2 (09:54→22:35)
--- NOTE | 2020-01-24 12:41 | NUR ---
INFORMED DR BOWERS OF PATIENTS SODIUM AND POTASSIUM LEVELS. ORDER RECEIVED FOR POTASSIUM AND CARRIED OUT
[2020-01-24] MEDS ORDERED: POTASSIUM CHL 20 Meq TABLET PO ONE (13:00)
--- NOTE | 2020-01-24 14:20 | NUR ---
DR BOWERS ON UNIT. INFORMED DR BOWERS OF PATIENTS BLOOD IN STOOL. NO ORDERS RECEIVED
--- NOTE | 2020-01-24 16:15 | NUR ---
Est energy needs 4498-5010 kcal (25-30 kcal/kg BW 58.3kg) Est protein needs 46-58g (0.8-1g/kg BW 58.3kg) Will reassess prn Addendum: 01/24/20 at [address] Amended: Links added.
[2020-01-24] MEDS: SODIUM CHLORIDE 0.9% 1,000 ML IV SCH (16:42)
--- NOTE | 2020-01-24 19:30 | NUR ---
Opening Shift Note Assumed care of patient, patient is AOx3. No SOB. Instructed patient on his POC and to call for assist, patient verbalized understanding and in agreement. Call light within reach and able to use. Will continue to monitor for changes. Bed locked in lowest position, HOB at 30 degrees, side rails up x2.
[2020-01-24] MEDS: HYDROcodone-ACET 5/325MG TAB PO PRN (19:47)
--- NOTE | 2020-01-24 19:47 | NUR ---
Patient Complains of Pain Patient given pain medication as prescribed. Will continue to monitor.
[2020-01-24] MEDS: ATORVASTATIN 20 MG TAB PO SCH (22:35)
--- NOTE | 2020-01-24 22:40 | NUR ---
Patient Complains of generalized 10/10 pain Patient was given pain medication as prescribed for pain. Will continue to monitor.
[2020-01-25] MEDS: HYDROmorphone HCL 2 MG/ML VL IV PRN ×4 (02:39→15:25)
--- NOTE | 2020-01-25 03:00 | NUR ---
Patient Complains of generalized 10/10 pain Patient was given pain medication as prescribed for pain. Will continue to monitor.
[2020-01-25 04:30] VITALS: BP 114/71
[2020-01-25] MEDS: GABAPENTIN 300 MG CAP PO SCH ×2 (05:34→15:24)
--- NOTE | 2020-01-25 07:20 | NUR ---
Pain level 10/10 generalized. Medication given as prescribed for pain.
--- NOTE | 2020-01-25 07:25 | NUR ---
End of Shift Note Endorsed care to dayshift nurse. At this time patient has no s/s of distress or SOB.
--- NOTE | 2020-01-25 07:30 | NUR ---
Opening Shift Note Assumed care of patient, resting in bed with eyes closed. No S/S of distress/SOB or pain. Bed is set in lowest locked position with side rails up x 2 for safety and call light is within reach, will continue to monitor for changes Q1hr and PRN.
[2020-01-25 08:00] VITALS: BP 149/81
[2020-01-25 09:36] VITALS: BP 149/81
[2020-01-25] MEDS: cefTRIAXone 1GM/50ML D5W 50 ML IV SCH (09:49)
[2020-01-25] MEDS: LORazepam 0.5 MG TAB PO SCH (09:49)
[2020-01-25] MEDS: predniSONE 20 MG TAB PO SCH (09:49)
[2020-01-25] MEDS: PREGABALIN 25 MG CAP PO SCH (09:50)
[2020-01-25] MEDS: MAGNESIUM OXIDE 400 MG TAB PO SCH (09:51)
[2020-01-25] MEDS: BIOTIN 1000 MCG PO SCH (09:51)
[2020-01-25] MEDS: ASPirin-EC 81 mg tab PO SCH (09:51)
[2020-01-25] MEDS: CLOPIDOGREL BISULFATE 75 MG TAB PO SCH (09:51)
[2020-01-25] MEDS: SODIUM CHLORIDE 0.9% 1,000 ML IV SCH (10:09)
--- NOTE | 2020-01-25 10:59 | NUR ---
IV insertion IV access obtained, via clean sterile technique by inserting 22 gauge catheter at the right hand after one attempt. IV secured properly. No trauma to site. Patient tolerated well.
--- NOTE | 2020-01-25 15:33 | NUR ---
made aware of minimal blood in stool. No new orders received at this time. Addendum: 01/25/20 at 1732 by Jo Ann Price RN RN Correction: MD Drake made aware of minimal blood in stool. No new orders received at this time.
--- NOTE | 2020-01-25 16:24 | NUR ---
Spoke to Tejal in [employer] Per Tejal, she is currently awaiting acceptance for home health, she will follow up with me once arrangements are confirmed.
--- NOTE | 2020-01-25 16:30 | NUR ---
Assessment Patient is a 65-year-old female who is alert and oriented. Prior to admission patient lived home with her [place] and functioned with assistance. Patient informed me she has a walker, wheel chair and shower chair for home use. Per patient she will return to her prior living arrangements and her will transport her home. Advised patient there is a social service consult for home health physical therapy and OT. Informed patient clinical information will be faxed to contracted home health agency. Informed patient she has a right to participate in all discharge planning. Patient verbalized understanding and agreed to discharge plan. [facility]. [facility] is not contracted with [employer]. Per Tana with [facility] [phone] patient has been accepted and service to start within 24-48hrs upon d/c day. Informed nurse. Addendum: 01/25/20 at 1632 by MATTHEW LENTZ Amended: Links added.
[2020-01-25 16:40] VITALS: BP 110/58
[2020-01-25] MEDS: HYDROcodone-ACET 5/325MG TAB PO PRN (16:55)
[2020-01-25 17:09] VITALS: BP 110/58
--- NOTE | 2020-01-25 18:50 | NUR ---
Discharge instructions given as ordered to patient and patient's , [facility]. Encourage to follow up with PMD as instructed. All questions and concerns addressed. Patient verbalized understanding. IV removed with catheter intact, pressure dressing applied. Telemetry unit returned to ICU. Patient taken to vehicle via wheelchair with all personal belongings, accompanied by staff. No distress noted at time of departure.
== END 2020-01-25 18:54 | disposition home health service (06) | DRG 871 ==
LOC: ER 22:49 → TELE 22:50 → TELE-CENTR 01-21 05:50
PROVIDERS: ADMIT Hospitalist; ATTEND Internal Medicine Cardiovascular Disease
DX: A41.9 Sepsis, unspecified organism (principal); G93.41 Metabolic encephalopathy; N18.6 End stage renal disease; E87.1 Hypo-osmolality and hyponatremia; G25.9 Extrapyramidal and movement disorder, unspecified; N39.0 Urinary tract infection, site not specified; I12.0 Hypertensive chronic kidney disease with stage 5 chronic kidney disease or end stage renal disease; D64.9 Anemia, unspecified; E78.5 Hyperlipidemia, unspecified; E86.0 Dehydration; E87.6 Hypokalemia; F03.90 Unspecified dementia, unspecified severity, without behavioral disturbance, psychotic disturbance, mood disturbance, and anxiety; G62.9 Polyneuropathy, unspecified; G89.4 Chronic pain syndrome; I25.10 Atherosclerotic heart disease of native coronary artery without angina pectoris; I77.6 Arteritis, unspecified; F41.9 Anxiety disorder, unspecified; M06.9 Rheumatoid arthritis, unspecified; J44.9 Chronic obstructive pulmonary disease, unspecified; M19.90 Unspecified osteoarthritis, unspecified site; M79.7 Fibromyalgia; R56.9 Unspecified convulsions; R62.7 Adult failure to thrive; Z79.52 Long term (current) use of systemic steroids; Z82.49 Family history of ischemic heart disease and other diseases of the circulatory system; Z83.3 Family history of diabetes mellitus; Z86.73 Personal history of transient ischemic attack (TIA), and cerebral infarction without residual deficits; Z95.5 Presence of coronary angioplasty implant and graft; Z98.1 Arthrodesis status; Z79.899 Other long term (current) drug therapy; Z68.24 Body mass index [BMI] 24.0-24.9, adult; Z88.5 Allergy status to narcotic agent; Z90.49 Acquired absence of other specified parts of digestive tract
CPT/HCPCS: 36415; 70450; 71045; 80048; 80053; 80061; 81001; 83735; 83880; 84443; 84484; 85025; 85379; 85610; 85652; 85730; 86141; 86225; 86235; 87086; 93005; 96374; 96375; 97116; 97530; G0378; J0696; J2405